=== PATIENT | female | born 1990 | race Caucasian/White ===

== ENCOUNTER 2023-10-18 18:22 | Emergency (ER) | payer OTHER ==
[~2023-10-18 18:22] MED LIST: GASTROGRAFIN 30 ML BOT ONE
[2023-10-18] MEDS ORDERED: fentaNYL 50 mcg/mL 1 mL Vial ONE (20:57)
[2023-10-18 21:07] LABS: Hematocrit 28.3 % (36.0-47.0); Hemoglobin 9.2 g/dL (12.0-16.0); Manual Diff?? YES; Mean Corpuscular HGB CONC 32.5 g/dL (32.0-36.0); Mean Corpuscular Hemoglobin 27.8 pg (27.0-31.0); Mean Corpuscular Volume 85.5 fl (78.0-98.0); Mean Platelet Volume 9.4 fL (7.4-10.4); Platelet Count 260 10x3/uL (130-400); RBC Distribution Width 19.4 % (11.5-14.5); Red Blood Cell (RBC) Count 3.31 mill/uL (4.20-5.40); White Blood Cell (WBC) Count 5.9 10x3/uL (4.8-10.8)
[2023-10-18 21:08] LABS: Delete Auto Diff?? YES
[2023-10-18 21:33] LABS: Anisocytosis SLIGHT = 6-15 cells HPF (0-5); Band 1 % (5-11); CellaVision Operator ID lab.sh2; Eosinophils 29 % (0-10); Lymphocytes 19 % (21-51); Monocytes 11 % (0-10); Neutrophil 39 % (42-75); Ovalocytes SLIGHT = 2-5 cells HPF (0-1); Platelet Adequacy Comment Platelets Normal; Polychromasia SLIGHT = 2-3 cells HPF (0-2); Smudge Cells 17.2 %; Total Cell Count 99
[2023-10-18 21:35] LABS: ALT (SGPT) 28 U/L (8-55); AST (SGOT) 23 U/L (5-34); Albumin 3.5 g/dL (3.5-5.0); Alkaline Phosphatase 57 U/L (40-110); Anion Gap 12 mmol/L (10-20); BUN (Urea Nitrogen) 10 mg/dL (7.0-18.7); Bilirubin, Total 0.6 mg/dL (0.2-1.2); Calc. Creatinine Clearance 0 mL/min (70-130); Calcium 8.8 mg/dL (7.8-10.44); Carbon Dioxide 22 mmol/L (22-29); Chloride 104 mmol/L (98-107); Estimated GFR 127; Globulin 3.6 g/dL (2.4-3.5); Glucose 86 mg/dL (70-105); Potassium 4.2 mmol/L (3.5-5.1); Protein, Total 7.1 g/dL (6.0-8.3); Sodium 134 mmol/L (136-145)
== END 2023-10-19 04:43 ==
LOC: ERS 18:22
DX: K94.23 Gastrostomy malfunction (principal); J18.9 Pneumonia, unspecified organism; Z43.1 Encounter for attention to gastrostomy
CPT/HCPCS: 36415; 43762; 71045; 74018; 80053; 85025; 87040; 96374; J3010; Q9963

== ENCOUNTER 2023-12-18 10:55 | Inpatient (IN) | payer OTHER ==
[~2023-12-18 10:55] MED LIST changes: -GASTROGRAFIN 30 ML BOT ONE; +Iopamidol-370 76% 500 ML MDV (1 ML CHARGE) ONE
[2023-12-18] MEDS ORDERED: NOREPINEPHRINE 8 MG/250 ML-D5W 250 ML ONE ×2 (10:58→14:38)
[2023-12-18] MEDS ORDERED: Cefepime 2 GM VIAL ONE (11:16)
[2023-12-18] MEDS ORDERED: Vancomycin 1 GM/200 ML (FROZEN) BAG ONE (11:16)
[2023-12-18] MEDS ORDERED: Sodium Chloride 0.9% 100 ML ONE (11:17)
[2023-12-18 11:23] LABS: Hematocrit 28.2 % (36.0-47.0); Hemoglobin 8.4 g/dL (12.0-16.0); Manual Diff?? YES; Mean Corpuscular HGB CONC 29.8 g/dL (32.0-36.0); Mean Corpuscular Hemoglobin 26.6 pg (27.0-31.0); Mean Corpuscular Volume 89.2 fl (78.0-98.0); Mean Platelet Volume 10.3 fL (7.4-10.4); Platelet Count 90 10x3/uL (130-400); Red Blood Cell (RBC) Count 3.16 mill/uL (4.20-5.40); White Blood Cell (WBC) Count 0.5 10x3/uL (4.8-10.8)
[2023-12-18 11:26] LABS: Delete Auto Diff?? YES
[2023-12-18] MEDS ORDERED: Vasopressin 20 UNITS/ML VIAL ONE ×2 (11:29→11:30)
[2023-12-18 11:47] LABS: ALT (SGPT) 56 U/L (8-55); AST (SGOT) 73 U/L (5-34); Albumin 2.3 g/dL (3.5-5.0); Alkaline Phosphatase 56 U/L (40-110); Anion Gap 14 mmol/L (10-20); BUN (Urea Nitrogen) 48 mg/dL (7.0-18.7); Calc. Creatinine Clearance 0 mL/min (70-130); Calcium 7.2 mg/dL (7.8-10.44); Carbon Dioxide 16 mmol/L (22-29); Chloride 116 mmol/L (98-107); Estimated GFR 44; Globulin 2.4 g/dL (2.4-3.5); Glucose 120 mg/dL (70-105); Potassium 3.7 mmol/L (3.5-5.1); Protein, Total 4.7 g/dL (6.0-8.3); Sodium 142 mmol/L (136-145)
[2023-12-18] MEDS ORDERED: Acetaminophen 650 MG Suppository ONE (11:55)
[2023-12-18 12:30] LABS: Bacteria/HPF 3+ HPF (None Seen); Bilirubin Negative (Negative); Blood, Urine 3+ (Negative); CAUTI Indications for Culture Fever or rigors; Clarity Turbid (Clear); Glucose, Urine (Dipstick) Normal (Negative); Ketone, Urine Negative (Negative); Leukocyte 500 Leu/uL (Negative); Nitrite Negative (Negative); Protein, Urine (Dipstick) 10 mg/dL (Neg-Trace); RBC/HPF 0-3 HPF (0-3); Specific Gravity, Urine 1.006 (1.002-1.036); Squamous Epithelial 0-3 HPF (0-3); Urobilinogen Normal mg/dL (Less than 2); WBC/HPF 21-50 HPF (0-3)
[2023-12-18 12:31] LABS: Urine Culture Reflex Yes Yes
[2023-12-18 12:35] LABS: Band 1 % (5-11); Burr Cells MARKED = >16 cells HPF (0-1); CellaVision Operator ID LAB.GE; Eosinophils 2 % (0-10); Large Platelets 7.2 % (0-5); Lymphocytes 82 % (21-51); Monocytes 2 % (0-10); Neutrophil 11 % (42-75); Nucleated RBC (Manual Ct) 7 % (0); Platelet Adequacy Comment Platelets Decreased; Polychromasia SLIGHT = 2-3 cells HPF (0-2); Reactive Lymphocytes 1 % (0-10); Total Cell Count 97
[2023-12-18] MEDS ORDERED: Hydrocortisone Sod Succ/PF 100 mg/2 ml Vial ONE (12:39)
[2023-12-18] MEDS ORDERED: EPINEPHrine 1 MG/ML VIAL ONE (13:13)
[2023-12-18 13:35] LABS: Analyzer IN Cardio ER; Base Excess (BEa) -13.8 mEq/L (-2.0 to +3.0); Calcium, Ionized (arterial) 1.04 mmol/L (1.12-1.30); Hematocrit-ABG 26 % (36.0-47.0); O2 Tension (PaO2), arterial 148.9 mmHg (80.0-100.0); Potassium - ABG Lab 3.54 mmol/L (3.70-5.30)
[2023-12-18] MEDS ORDERED: Ibuprofen 100 MG/5 ML UDCUP ONE (13:35)
[2023-12-18] MEDS ORDERED: Electrolyte Replacement Protocol 1 EACH IVPB PRN (13:40)
[2023-12-18] MEDS ORDERED: Acetaminophen 650 MG Suppository PR PRN (13:40)
[2023-12-18] MEDS ORDERED: Acetaminophen 325 MG (10.15 ML) UDCUP PO PRN (13:40)
[2023-12-18 13:44] LABS: Puncture Site RRA
[2023-12-18 13:46] LABS: SARS-CoV-2 NAA Rapid Test Not Detected (NotDetected)
[2023-12-18] MEDS ORDERED: metroNIDAZOLE 500 MG in Premix 1 BAG IVPB SCH (14:10)
[2023-12-18] MEDS ORDERED: Electrolyte Replacement Protocol FS PRN (14:30)
[2023-12-18] MEDS ORDERED: Sodium Bicarbonate 150 MEQ in Dextrose 5% in Water 1,000 ML IV SCH (15:00)
[2023-12-18] MEDS ORDERED: Vancomycin HCl 500 MG in Sodium Chloride 0.9% 100 ML IVPB SCH (15:00)
[2023-12-18 15:33] LABS: Hemoglobin 9.3 g/dL (12.0-16.0); Manual Diff?? YES; Mean Corpuscular Hemoglobin 27.1 pg (27.0-31.0); Mean Corpuscular Volume 90.4 fl (78.0-98.0); Mean Platelet Volume 10.9 fL (7.4-10.4); Platelet Count 121 10x3/uL (130-400); RBC Distribution Width 18.3 % (11.5-14.5); Red Blood Cell (RBC) Count 3.43 mill/uL (4.20-5.40)
[2023-12-18 15:34] LABS: White Blood Cell (WBC) Count 14.1 10x3/uL (4.8-10.8)
[2023-12-18 15:37] LABS: Delete Auto Diff?? YES
[2023-12-18 15:55] LABS: Lactic Acid 11.2 mmol/L (0.5-2.2)
[2023-12-18 16:00] LABS: MONO NEGATIVE CONTROL ZONE White (Negative) (White); MONO POSITIVE CONTROL Pink Line (Positive) (PINK/RED); Mononucleosis NEGATIVE (NEGATIVE)
[2023-12-18 16:01] LABS: Anisocytosis SLIGHT = 6-15 cells HPF (0-5); Band 22 % (5-11); Burr Cells MODERATE= 6-15 cells HPF (0-1); CellaVision Operator ID LAB.MJL; Dohle Bodies SLIGHT; Elliptocytes SLIGHT = 2-5 cells HPF (0-1); Large Platelets 2.8 % (0-5); Lymphocytes 9 % (21-51); Metamyelocyte 13 % (0-0); Myelocyte 4 % (0-0); Neutrophil 51 % (42-75); Ovalocytes SLIGHT = 2-5 cells HPF (0-1); Platelet Adequacy Comment Platelets Decreased; Poikilocytosis MODERATE=16-30 cells HPF (0-5); Polychromasia SLIGHT = 2-3 cells HPF (0-2); Total Cell Count 108; Toxic Granulation MODERATE; Vacuoles MODERATE
[2023-12-18] MEDS: Clindamycin/D5W 900 MG in Premix 1 BAG IVPB SCH (16:34)
[2023-12-18] MEDS: Lactated Ringer's 1,000 ML IV SCH (16:34)
[2023-12-18] MEDS ORDERED: Phenylephrine 40 MG in Sodium Chloride 0.9% 250 ML 250 ML IVPB PRN (17:27)
[2023-12-18] MEDS ORDERED: Lactated Ringer's 1,000 ML IV SCH (17:30)
[2023-12-18] MEDS ORDERED: Midodrine HCl 5 MG TAB PO SCH (17:30)
[2023-12-18] MEDS ORDERED: Albumin 25% 25 GM (100 mL) BOT IVPB SCH (17:30)
[2023-12-18] MEDS: Hydrocortisone Sod Succ/PF 100 mg/2 ml Vial IVP SCH (18:03)
[2023-12-18] MEDS: Phenylephrine 40 MG, Admixture Fee 1 EACH in Sodium Chloride 0.9% 250 ML 250 ML IVPB PRN (18:26)
[2023-12-18] MEDS: NOREPINEPHRINE 8 MG/250 ML-D5W 250 ML IVPB SCH ×2 (18:45→21:52)
[2023-12-18 19:22] LABS: HBCM Index 0.08 S/CO (0-0.79); HBSAg Index 0.21 S/CO (0-0.99); Hep A IgM AB Non-Reactive S/CO (NonReactive); Hep A IgM S/CO 0.13 S/CO (0-0.79); Hep B Surf Ag Non-Reactive S/CO (NonReactive); Hepatitis B Core IgM Abs Non-Reactive S/CO (NonReactive)
[2023-12-18 19:26] LABS: Hep C IgG Ab Reflex HepC Qnt S/CO (NonReactive)
[2023-12-18] MEDS ORDERED: Ibuprofen 600 MG TAB PO PRN (20:12)
[2023-12-18] MEDS ORDERED: Ibuprofen 100 MG/5 ML UDCUP PO PRN (20:34)
[2023-12-18] MEDS ORDERED: Vancomycin (BATCH) 1.5 GM in Premix 1 BAG IVPB SCH (21:00)
[2023-12-18] MEDS: Midodrine HCl 5 MG TAB PO SCH (21:08)
[2023-12-18] MEDS: Famotidine/PF 20 mg/2ml Vial SLOW IVP SCH (21:08)
[2023-12-18] MEDS: Heparin 5,000 UNITS/ML VIAL SC SCH (21:09)
[2023-12-18] MEDS ORDERED: Glucagon 1 MG/ML KIT IM PRN (21:25)
[2023-12-18] MEDS ORDERED: Dextrose 50% Abboject 50 ML SYRINGE SLOW IVP PRN (21:25)
[2023-12-18] MEDS ORDERED: Dextrose 5% in Water 1,000 ML IV PRN (21:25)
[2023-12-18] MEDS: HumaLOG 300 UNITS/3 ML VIAL SC PRN (21:36)
[2023-12-18 22:06] LABS: Critical Call Chem-Lactate NUR.SJK1 @2205; Lactic Acid 9.8 mmol/L (0.5-2.2)
[2023-12-19] MEDS ORDERED: traZODone HCl 50 MG TAB PO SCH (00:15)
[2023-12-19] MEDS: Hydrocortisone Sod Succ/PF 100 mg/2 ml Vial IVP SCH ×5 (00:17→23:37)
[2023-12-19] MEDS: Cefepime 1 GM in Sodium Chloride 0.9% 100 ML IVPB SCH ×3 (00:17→23:57)
[2023-12-19] MEDS: Clindamycin/D5W 900 MG in Premix 1 BAG IVPB SCH ×4 (00:18→23:57)
[2023-12-19] MEDS: Albumin 25% 25 GM (100 mL) BOT IVPB SCH ×3 (00:18→11:18)
[2023-12-19] MEDS: Phenylephrine 40 MG, Admixture Fee 1 EACH in Sodium Chloride 0.9% 250 ML 250 ML IVPB PRN (00:30)
[2023-12-19] MEDS: Vasopressin 20 UNITS in Sodium Chloride 0.9% 50 ML IV SCH ×2 (00:30→16:18)
[2023-12-19] MEDS: Acetaminophen 650 MG/20.3 ML UDCUP PO PRN ×3 (00:30→23:58)
[2023-12-19] MEDS: Lactated Ringer's 1,000 ML IV SCH ×3 (00:31→17:39)
[2023-12-19 01:27] LABS: Lactic Acid 8.5 mmol/L (0.5-2.2)
[2023-12-19] MEDS: NOREPINEPHRINE 8 MG/250 ML-D5W 250 ML IVPB SCH ×4 (01:34→18:10)
[2023-12-19] MEDS ORDERED: Sodium Bicarbonate 150 MEQ in Dextrose 5% in Water 1,000 ML IV SCH (03:30)
[2023-12-19 04:28] LABS: Hematocrit 29.4 % (36.0-47.0); Hemoglobin 9.2 g/dL (12.0-16.0); Manual Diff?? YES; Mean Corpuscular HGB CONC 31.3 g/dL (32.0-36.0); Mean Corpuscular Hemoglobin 26.5 pg (27.0-31.0); RBC Distribution Width 18.4 % (11.5-14.5); Red Blood Cell (RBC) Count 3.47 mill/uL (4.20-5.40); White Blood Cell (WBC) Count 22.6 10x3/uL (4.8-10.8)
[2023-12-19 04:29] LABS: Platelet Count 88 10x3/uL (130-400)
[2023-12-19 04:30] LABS: Delete Auto Diff?? YES; Mean Corpuscular Volume 84.7 fl (78.0-98.0)
[2023-12-19 05:07] LABS: Lactic Acid 5.9 mmol/L (0.5-2.2)
[2023-12-19 05:37] LABS: ALT (SGPT) 50 U/L (8-55); AST (SGOT) 91 U/L (5-34); Albumin 3.1 g/dL (3.5-5.0); Alkaline Phosphatase 48 U/L (40-110); Anion Gap 16 mmol/L (10-20); BUN (Urea Nitrogen) 28 mg/dL (7.0-18.7); Bilirubin, Total 2.1 mg/dL (0.2-1.2); Calc. Creatinine Clearance 101 mL/min (70-130); Calcium 6.7 mg/dL (7.8-10.44); Carbon Dioxide 14 mmol/L (22-29); Chloride 112 mmol/L (98-107); Estimated GFR 85; Globulin 2.2 g/dL (2.4-3.5); Glucose 295 mg/dL (70-105); Potassium 3.9 mmol/L (3.5-5.1); Protein, Total 5.3 g/dL (6.0-8.3); Sodium 138 mmol/L (136-145)
[2023-12-19 05:43] LABS: Band 31 % (5-11); CellaVision Operator ID LAB.CLH1; Hypochromia SLIGHT = 6-15 cells HPF (0-5); Lymphocytes 7 % (21-51); Monocytes 13 % (0-10); Neutrophil 50 % (42-75); Nucleated RBC (Manual Ct) 2 % (0); Platelet Adequacy Comment Platelets Decreased; Polychromasia SLIGHT = 2-3 cells HPF (0-2); Total Cell Count 103
[2023-12-19] MEDS ORDERED: Calcium Chloride 13.6 MEQ in Sodium Chloride 0.9% 100 ML IVPB SCH (06:15)
[2023-12-19] MEDS ORDERED: NOREPINEPHRINE 8 MG/250 ML-D5W 250 ML ONE ×2 (08:40→13:13)
[2023-12-19] MEDS: Heparin 5,000 UNITS/ML VIAL SC SCH ×2 (08:46→22:05)
[2023-12-19] MEDS: Famotidine/PF 20 mg/2ml Vial SLOW IVP SCH ×2 (08:46→22:03)
[2023-12-19] MEDS: Midodrine HCl 5 MG TAB PO SCH ×3 (08:46→22:05)
[2023-12-19] MEDS: Baclofen 10 MG TAB PER TUBE SCH ×3 (08:46→22:04)
[2023-12-19] MEDS ORDERED: Midodrine HCl 5 MG TAB PER TUBE SCH (09:00)
[2023-12-19] MEDS: HumaLOG 300 UNITS/3 ML VIAL SC PRN ×3 (11:00→23:54)
[2023-12-19] MEDS: HYDROcodone/Acetaminophen 5/325 mg Tablet PO PRN ×3 (11:17→23:58)
[2023-12-19] MEDS ORDERED: Vancomycin (BATCH) 1.25 GM in Premix 1 BAG IVPB SCH (12:00)
[2023-12-19 14:03] LABS: pH, Arterial 7.187 (7.35-7.45)
[2023-12-19 14:04] LABS: Actual Bicarbonate (HCO3a) 13.3 mEq/L (22-28)
[2023-12-19 14:39] LABS: Hemoglobin A1c 5.8 % (4.0-6.0)
[2023-12-19 14:45] LABS: GC by PCR, Vaginal Swab Not Detected (NotDetected)
[2023-12-19] MEDS ORDERED: diphenhydrAMINE 50 MG/ML VIAL IVP SCH (15:02)
[2023-12-19] MEDS: Vancomycin HCl 750 MG in Sodium Chloride 0.9% 250 ML 250 ML IVPB SCH ×2 (15:36→23:38)
[2023-12-19] MEDS ORDERED: Lactated Ringer's 500 ML IV SCH (16:45)
[2023-12-19] MEDS: Gabapentin 300 MG CAP PER TUBE SCH (22:04)
[2023-12-19] MEDS: traZODone HCl 50 MG TAB PER TUBE SCH (23:56)
[2023-12-20] MEDS ORDERED: Sodium Bicarb 50 mEq/50 ML VIAL IVP SCH (02:15)
[2023-12-20] MEDS ORDERED: Lactated Ringer's 500 ML IV SCH (02:15)
[2023-12-20] MEDS: Lactated Ringer's 1,000 ML IV SCH ×2 (04:00→12:29)
[2023-12-20] MEDS: Vasopressin 20 UNITS in Sodium Chloride 0.9% 50 ML IV SCH ×3 (04:17→18:23)
[2023-12-20] MEDS: HumaLOG 300 UNITS/3 ML VIAL SC PRN (04:55)
[2023-12-20 05:05] LABS: Hemoglobin 8.2 g/dL (12.0-16.0); Manual Diff?? YES; Mean Corpuscular HGB CONC 31.5 g/dL (32.0-36.0); Mean Corpuscular Hemoglobin 26.9 pg (27.0-31.0); Mean Corpuscular Volume 85.2 fl (78.0-98.0); RBC Distribution Width 18.3 % (11.5-14.5); Red Blood Cell (RBC) Count 3.05 mill/uL (4.20-5.40); White Blood Cell (WBC) Count 19.5 10x3/uL (4.8-10.8)
[2023-12-20 05:06] LABS: Platelet Count 42 10x3/uL (130-400)
[2023-12-20 05:07] LABS: Delete Auto Diff?? YES
[2023-12-20 05:30] LABS: ALT (SGPT) 41 U/L (8-55); AST (SGOT) 77 U/L (5-34); Alkaline Phosphatase 53 U/L (40-110); Anion Gap 8 mmol/L (10-20); BUN (Urea Nitrogen) 26 mg/dL (7.0-18.7); Bilirubin, Total 1.3 mg/dL (0.2-1.2); Calc. Creatinine Clearance 138 mL/min (70-130); Calcium 7.4 mg/dL (7.8-10.44); Carbon Dioxide 26 mmol/L (22-29); Chloride 107 mmol/L (98-107); Estimated GFR 118; Globulin 1.9 g/dL (2.4-3.5); Glucose 218 mg/dL (70-105); Protein, Total 4.9 g/dL (6.0-8.3); Sodium 137 mmol/L (136-145)
[2023-12-20 05:46] LABS: Anisocytosis SLIGHT = 6-15 cells HPF (0-5); Band 11 % (5-11); CellaVision Operator ID lab.sh2; Dohle Bodies SLIGHT; Hypochromia SLIGHT = 6-15 cells HPF (0-5); Large Platelets 1.9 % (0-5); Lymphocytes 7 % (21-51); Monocytes 2 % (0-10); Neutrophil 81 % (42-75); Ovalocytes MODERATE= 6-15 cells HPF (0-1); Platelet Adequacy Comment Significant decrease; Polychromasia SLIGHT = 2-3 cells HPF (0-2); Smudge Cells 9.6 %; Total Cell Count 104
[2023-12-20] MEDS: Hydrocortisone Sod Succ/PF 100 mg/2 ml Vial IVP SCH ×3 (07:07→16:46)
[2023-12-20] MEDS: Vancomycin HCl 750 MG in Sodium Chloride 0.9% 250 ML 250 ML IVPB SCH (07:46)
[2023-12-20 07:49] LABS: Vancomycin, Trough 10.9 ug/mL
[2023-12-20] MEDS: Clindamycin/D5W 900 MG in Premix 1 BAG IVPB SCH ×2 (07:56→16:46)
[2023-12-20] MEDS ORDERED: Magnesium 2 GM/50 ML(in water) 2 GM in Premix 1 BAG IVPB SCH (08:00)
[2023-12-20] MEDS ORDERED: Potassium Phosphate 15 MMOL in Sodium Chloride 0.9% 100 ML IVPB SCH (08:00)
[2023-12-20] MEDS: Gabapentin 300 MG CAP PER TUBE SCH ×3 (08:50→20:37)
[2023-12-20] MEDS: Famotidine/PF 20 mg/2ml Vial SLOW IVP SCH ×2 (08:50→20:37)
[2023-12-20] MEDS: NOREPINEPHRINE 8 MG/250 ML-D5W 250 ML IVPB SCH (08:50)
[2023-12-20] MEDS: Baclofen 10 MG TAB PER TUBE SCH ×3 (08:51→20:38)
[2023-12-20] MEDS: Midodrine HCl 5 MG TAB PO SCH ×3 (08:51→20:38)
[2023-12-20] MEDS: Heparin 5,000 UNITS/ML VIAL SC SCH ×2 (08:52→20:38)
[2023-12-20] MEDS: HYDROcodone/Acetaminophen 5/325 mg Tablet PO PRN ×2 (10:44→20:38)
[2023-12-20] MEDS: Cefepime 1 GM in Sodium Chloride 0.9% 100 ML IVPB SCH (12:26)
[2023-12-20] MEDS: Nitroglycerin 2% Ointment 1 INCH/1 GM Packet TOP SCH ×2 (12:26→18:27)
[2023-12-20 12:35] LABS: BHCG - Serum Negative (NEGATIVE); Pregs Control Background? CLEAR/WHITE (CLR/WHITE); Pregs Control Bar Appear? YES (CONTROL BAR)
[2023-12-20] MEDS ORDERED: Albumin 25% 25 GM (100 mL) BOT IVPB SCH (16:45)
[2023-12-20] MEDS: Vancomycin 1 GM in Premix 1 BAG IVPB SCH (16:46)
[2023-12-20] MEDS ORDERED: Nitroglycerin 2% Ointment 1 INCH/1 GM Packet TOP SCH (18:15)
[2023-12-20] MEDS ORDERED: Cefepime 2 GM in Sodium Chloride 0.9% 100 ML IVPB SCH ×2 (20:00→23:59)
[2023-12-20] MEDS ORDERED: Meropenem 2 GM in Sodium Chloride 0.9% 100 ML IVPB SCH (20:30)
[2023-12-20] MEDS: traZODone HCl 50 MG TAB PER TUBE SCH (20:38)
[2023-12-20] MEDS ORDERED: Meropenem 1 GM in Sodium Chloride 0.9% 100 ML IVPB SCH (21:00)
[2023-12-20] MEDS: AMPICILLIN IVPB SCH (22:52)
[2023-12-20] MEDS: SODIUM CHLORIDE 0.9% IVPB SCH (22:52)
[2023-12-20] MEDS: SULBACTAM IVPB SCH (22:52)
[2023-12-21] MEDS: Hydrocortisone Sod Succ/PF 100 mg/2 ml Vial IVP SCH ×5 (01:11→23:59)
[2023-12-21] MEDS: Vancomycin 1 GM in Premix 1 BAG IVPB SCH ×2 (01:12→09:03)
[2023-12-21 04:20] LABS: Hematocrit 24.3 % (36.0-47.0); Hemoglobin 7.7 g/dL (12.0-16.0); Manual Diff?? YES; Mean Corpuscular HGB CONC 31.7 g/dL (32.0-36.0); Mean Corpuscular Hemoglobin 26.4 pg (27.0-31.0); Mean Corpuscular Volume 83.2 fl (78.0-98.0); RBC Distribution Width 18.1 % (11.5-14.5); Red Blood Cell (RBC) Count 2.92 mill/uL (4.20-5.40); White Blood Cell (WBC) Count 19.8 10x3/uL (4.8-10.8)
[2023-12-21 04:25] LABS: Delete Auto Diff?? YES; Platelet Count 39 10x3/uL (130-400)
[2023-12-21 04:43] LABS: Anion Gap 9 mmol/L (10-20); BUN (Urea Nitrogen) 37 mg/dL (7.0-18.7); Calc. Creatinine Clearance 163 mL/min (70-130); Calcium 7.4 mg/dL (7.8-10.44); Carbon Dioxide 25 mmol/L (22-29); Chloride 109 mmol/L (98-107); Estimated GFR 122; Glucose 211 mg/dL (70-105); Potassium 4.3 mmol/L (3.5-5.1); Sodium 139 mmol/L (136-145)
[2023-12-21 05:09] LABS: Band 4 % (5-11); CellaVision Operator ID lab.abc; Eosinophils 1 % (0-10); Hypochromia SLIGHT = 6-15 cells HPF (0-5); Lymphocytes 8 % (21-51); Monocytes 5 % (0-10); Neutrophil 82 % (42-75); Nucleated RBC (Manual Ct) 1 % (0); Platelet Adequacy Comment Platelets Decreased; Total Cell Count 100
[2023-12-21] MEDS: HYDROcodone/Acetaminophen 5/325 mg Tablet PO PRN ×3 (05:23→20:39)
[2023-12-21] MEDS: Meropenem 1 GM in Sodium Chloride 0.9% 100 ML IVPB SCH ×3 (05:24→21:58)
[2023-12-21] MEDS: HumaLOG 300 UNITS/3 ML VIAL SC PRN ×2 (05:26→11:00)
[2023-12-21] MEDS: SODIUM CHLORIDE 0.9% IVPB SCH ×4 (08:00→22:20)
[2023-12-21] MEDS: AMPICILLIN IVPB SCH ×3 (08:00→22:20)
[2023-12-21] MEDS: SULBACTAM IVPB SCH ×3 (08:00→22:20)
[2023-12-21] MEDS: Lactated Ringer's 1,000 ML IV SCH (09:03)
[2023-12-21] MEDS: Baclofen 10 MG TAB PER TUBE SCH ×3 (09:03→20:39)
[2023-12-21] MEDS: Midodrine HCl 5 MG TAB PO SCH ×3 (09:03→20:38)
[2023-12-21] MEDS: Gabapentin 300 MG CAP PER TUBE SCH ×3 (09:03→20:38)
[2023-12-21] MEDS: Famotidine/PF 20 mg/2ml Vial SLOW IVP SCH ×2 (09:04→20:38)
[2023-12-21] MEDS: Heparin 5,000 UNITS/ML VIAL SC SCH (09:05)
[2023-12-21] MEDS: Nitroglycerin 2% Ointment 1 INCH/1 GM Packet TOP SCH ×2 (11:50→18:07)
[2023-12-21 14:14] LABS: Parvovirus B19 IgG ABS 5.7 index (0.0-0.8); Parvovirus B19 IgM ABS 0.1 index (0.0-0.8)
[2023-12-21] MEDS: AMIKACIN SULFATE IVPB SCH (15:45)
[2023-12-21 18:37] LABS: HCV RNA, log10 5.097 (.); Hep C PCR-Quant 125000 IU/mL (.)
[2023-12-21] MEDS: traZODone HCl 50 MG TAB PER TUBE SCH (20:39)
[2023-12-21] MEDS ORDERED: HYDROcodone/Acetaminophen 5/325 mg Tablet PO SCH (23:45)
[2023-12-21] MEDS ORDERED: Ketorolac Tromethamine 30 MG (1 mL) VIAL IVP SCH (23:45)
[2023-12-22] MEDS: fentaNYL 50 mcg/mL 1 mL Vial SLOW IVP PRN ×5 (03:02→20:19)
[2023-12-22 04:08] LABS: Hematocrit 22.5 % (36.0-47.0); Hemoglobin 7.1 g/dL (12.0-16.0); Manual Diff?? YES; Mean Corpuscular HGB CONC 31.6 g/dL (32.0-36.0); Mean Corpuscular Hemoglobin 26.2 pg (27.0-31.0); Red Blood Cell (RBC) Count 2.71 mill/uL (4.20-5.40); White Blood Cell (WBC) Count 9.8 10x3/uL (4.8-10.8)
[2023-12-22 04:27] LABS: Anion Gap 7 mmol/L (10-20); BUN (Urea Nitrogen) 27 mg/dL (7.0-18.7); Calc. Creatinine Clearance 188 mL/min (70-130); Calcium 7.7 mg/dL (7.8-10.44); Carbon Dioxide 28 mmol/L (22-29); Chloride 113 mmol/L (98-107); Estimated GFR 126; Glucose 137 mg/dL (70-105); Potassium 3.7 mmol/L (3.5-5.1); Sodium 144 mmol/L (136-145)
[2023-12-22 05:00] LABS: Delete Auto Diff?? YES; Platelet Count 34 10x3/uL (130-400)
[2023-12-22 06:21] LABS: Anisocytosis SLIGHT = 6-15 cells HPF (0-5); Band 5 % (5-11); CellaVision Operator ID LAB.JMM; Hypochromia MODERATE=16-30 cells HPF (0-5); Lymphocytes 6 % (21-51); Macrocytosis SLIGHT = 6-15 cells HPF (0-5); Neutrophil 88 % (42-75); Platelet Adequacy Comment Significant decrease; Polychromasia SLIGHT = 2-3 cells HPF (0-2); Reactive Lymphocytes 1 % (0-10); Total Cell Count 100
[2023-12-22] MEDS: Meropenem 1 GM in Sodium Chloride 0.9% 100 ML IVPB SCH ×3 (06:34→21:24)
[2023-12-22] MEDS: Hydrocortisone Sod Succ/PF 100 mg/2 ml Vial IVP SCH ×4 (06:34→23:48)
[2023-12-22] MEDS: Lactated Ringer's 1,000 ML IV SCH (06:41)
[2023-12-22] MEDS: Famotidine/PF 20 mg/2ml Vial SLOW IVP SCH ×2 (08:08→20:19)
[2023-12-22] MEDS: Baclofen 10 MG TAB PER TUBE SCH ×3 (08:08→20:18)
[2023-12-22] MEDS: Midodrine HCl 5 MG TAB PO SCH ×3 (08:08→20:18)
[2023-12-22] MEDS: Gabapentin 300 MG CAP PER TUBE SCH ×3 (08:08→20:17)
[2023-12-22] MEDS: SODIUM CHLORIDE 0.9% IVPB SCH ×4 (08:48→21:24)
[2023-12-22] MEDS: SULBACTAM IVPB SCH ×3 (08:48→21:24)
[2023-12-22] MEDS: AMPICILLIN IVPB SCH ×3 (08:48→21:24)
[2023-12-22 13:20] VITALS: BP 90/58
[2023-12-22 13:37] LABS: Reference Lab Name LABCORP
[2023-12-22] MEDS: AMIKACIN SULFATE IVPB SCH (13:37)
[2023-12-22] MEDS: Nitroglycerin 2% Ointment 1 INCH/1 GM Packet TOP SCH ×2 (13:43→17:38)
[2023-12-22] MEDS: HYDROcodone/Acetaminophen 5/325 mg Tablet PO PRN ×2 (16:18→23:47)
[2023-12-22] MEDS: traZODone HCl 50 MG TAB PER TUBE SCH (20:18)
[2023-12-23] MEDS: Lactated Ringer's 1,000 ML IV SCH ×2 (00:45→18:21)
[2023-12-23] MEDS: fentaNYL 50 mcg/mL 1 mL Vial SLOW IVP PRN ×4 (01:41→17:07)
[2023-12-23] MEDS: Hydrocortisone Sod Succ/PF 100 mg/2 ml Vial IVP SCH ×3 (05:25→17:08)
[2023-12-23] MEDS: Meropenem 1 GM in Sodium Chloride 0.9% 100 ML IVPB SCH ×3 (05:26→22:59)
[2023-12-23] MEDS: SODIUM CHLORIDE 0.9% IVPB SCH ×4 (05:26→22:59)
[2023-12-23] MEDS: AMPICILLIN IVPB SCH ×3 (05:26→22:59)
[2023-12-23] MEDS: SULBACTAM IVPB SCH ×3 (05:26→22:59)
[2023-12-23 06:13] LABS: Anion Gap 11 mmol/L (10-20); BUN (Urea Nitrogen) 24 mg/dL (7.0-18.7); Calc. Creatinine Clearance 182 mL/min (70-130); Calcium 7.6 mg/dL (7.8-10.44); Carbon Dioxide 27 mmol/L (22-29); Chloride 115 mmol/L (98-107); Estimated GFR 125; Glucose 148 mg/dL (70-105); Potassium 3.4 mmol/L (3.5-5.1); Sodium 150 mmol/L (136-145)
[2023-12-23 06:55] LABS: Hematocrit 26.8 % (36.0-47.0); Hemoglobin 8.6 g/dL (12.0-16.0); Manual Diff?? YES; Mean Corpuscular HGB CONC 32.1 g/dL (32.0-36.0); Mean Corpuscular Hemoglobin 26.6 pg (27.0-31.0); RBC Distribution Width 17.9 % (11.5-14.5); Red Blood Cell (RBC) Count 3.23 mill/uL (4.20-5.40); White Blood Cell (WBC) Count 7.1 10x3/uL (4.8-10.8)
[2023-12-23 06:58] LABS: Delete Auto Diff?? YES; Platelet Count 41 10x3/uL (130-400)
[2023-12-23 07:18] LABS: Band 4 % (5-11); CellaVision Operator ID LAB.CMB; Hypochromia SLIGHT = 6-15 cells HPF (0-5); Large Platelets 4.8 % (0-5); Lymphocytes 7 % (21-51); Monocytes 8 % (0-10); Neutrophil 81 % (42-75); Ovalocytes SLIGHT = 2-5 cells HPF (0-1); Plasma Cells 1 % (0-0); Platelet Adequacy Comment Significant decrease; Polychromasia MODERATE = 3-4 cells HPF (0-2); Target Cells SLIGHT = 2-5 cells HPF (0-1); Total Cell Count 105
[2023-12-23] MEDS ORDERED: Potassium Bicarbonate/Cit Ac 20 MEQ TAB PO SCH (08:00)
[2023-12-23] MEDS: Baclofen 10 MG TAB PER TUBE SCH ×3 (08:19→20:50)
[2023-12-23] MEDS: Midodrine HCl 5 MG TAB PO SCH ×3 (08:19→20:50)
[2023-12-23] MEDS: HYDROcodone/Acetaminophen 5/325 mg Tablet PO PRN ×3 (08:20→20:51)
[2023-12-23] MEDS: Gabapentin 300 MG CAP PER TUBE SCH ×3 (08:20→20:50)
[2023-12-23] MEDS: Famotidine/PF 20 mg/2ml Vial SLOW IVP SCH ×2 (08:21→20:49)
[2023-12-23] MEDS: Nitroglycerin 2% Ointment 1 INCH/1 GM Packet TOP SCH ×2 (12:48→19:18)
[2023-12-23] MEDS ORDERED: Furosemide 40 MG (4 mL) VIAL SLOW IVP SCH (14:15)
[2023-12-23 15:14] LABS: Potassium 3.7 mmol/L (3.5-5.1)
[2023-12-23 17:13] LABS: CMV DNA-PCR Test Negative (Negative)
[2023-12-23] MEDS: AMIKACIN SULFATE IVPB SCH (17:53)
[2023-12-23] MEDS: traZODone HCl 50 MG TAB PER TUBE SCH (20:50)
[2023-12-24] MEDS: Hydrocortisone Sod Succ/PF 100 mg/2 ml Vial IVP SCH ×3 (00:05→20:37)
[2023-12-24] MEDS: fentaNYL 50 mcg/mL 1 mL Vial SLOW IVP PRN ×5 (00:05→16:35)
[2023-12-24] MEDS: HYDROcodone/Acetaminophen 5/325 mg Tablet PO PRN ×4 (04:06→22:33)
[2023-12-24] MEDS: Meropenem 1 GM in Sodium Chloride 0.9% 100 ML IVPB SCH ×3 (05:24→20:38)
[2023-12-24 05:30] LABS: #Monocytes 0.7 thou/uL (0.11-0.59); #Neutrophils 6.3 thou/uL (1.40-6.50); %Basophils 0.1 % (0.0-1.0); %Monocytes 9.2 % (0.0-10.0); %Neutrophils 79.3 % (42.0-75.0); Hematocrit 29.4 % (36.0-47.0); Hemoglobin 9.3 g/dL (12.0-16.0); Mean Corpuscular HGB CONC 31.6 g/dL (32.0-36.0); Mean Corpuscular Hemoglobin 26.9 pg (27.0-31.0); RBC Distribution Width 17.9 % (11.5-14.5); Red Blood Cell (RBC) Count 3.46 mill/uL (4.20-5.40); White Blood Cell (WBC) Count 7.9 10x3/uL (4.8-10.8)
[2023-12-24] MEDS: SODIUM CHLORIDE 0.9% IVPB SCH ×4 (05:46→22:33)
[2023-12-24] MEDS: AMPICILLIN IVPB SCH ×3 (05:46→22:33)
[2023-12-24] MEDS: SULBACTAM IVPB SCH ×3 (05:46→22:33)
[2023-12-24 05:54] LABS: Anion Gap 10 mmol/L (10-20); BUN (Urea Nitrogen) 16 mg/dL (7.0-18.7); Calc. Creatinine Clearance 173 mL/min (70-130); Calcium 7.8 mg/dL (7.8-10.44); Carbon Dioxide 29 mmol/L (22-29); Chloride 111 mmol/L (98-107); Estimated GFR 123; Glucose 126 mg/dL (70-105); Potassium 3.1 mmol/L (3.5-5.1); Sodium 147 mmol/L (136-145)
[2023-12-24 06:03] LABS: Platelet Count 89 10x3/uL (130-400)
[2023-12-24] MEDS: Potassium Chloride 20 MEQ in Premix 1 BAG IVPB SCH ×2 (09:03→10:25)
[2023-12-24] MEDS: Gabapentin 300 MG CAP PER TUBE SCH ×3 (09:04→20:38)
[2023-12-24] MEDS: Famotidine/PF 20 mg/2ml Vial SLOW IVP SCH ×2 (09:04→20:38)
[2023-12-24] MEDS: Baclofen 10 MG TAB PER TUBE SCH ×3 (09:05→20:38)
[2023-12-24] MEDS: Midodrine HCl 5 MG TAB PO SCH ×3 (09:05→20:39)
[2023-12-24] MEDS: Lactated Ringer's 1,000 ML IV SCH (11:29)
[2023-12-24] MEDS: Nitroglycerin 2% Ointment 1 INCH/1 GM Packet TOP SCH ×2 (13:02→16:36)
[2023-12-24] MEDS: AMIKACIN SULFATE IVPB SCH (16:36)
[2023-12-24] MEDS: traZODone HCl 50 MG TAB PER TUBE SCH (20:39)
[2023-12-25] MEDS: fentaNYL 50 mcg/mL 1 mL Vial SLOW IVP PRN ×5 (03:36→21:17)
[2023-12-25 04:52] LABS: #Eosinphils 0.1 thou/uL (0.0-0.7); #Monocytes 0.9 thou/uL (0.11-0.59); #Neutrophils 7.6 thou/uL (1.40-6.50); %Basophils 0.1 % (0.0-1.0); %Eosinophils 0.5 % (0.0-10.0); %Lymphocytes 10.8 % (21.0-51.0); %Monocytes 8.9 % (0.0-10.0); %Neutrophils 78.6 % (42.0-75.0); Hematocrit 32.3 % (36.0-47.0); Hemoglobin 10.2 g/dL (12.0-16.0); Mean Corpuscular HGB CONC 31.6 g/dL (32.0-36.0); Mean Corpuscular Hemoglobin 26.8 pg (27.0-31.0); Platelet Count 143 10x3/uL (130-400); RBC Distribution Width 17.6 % (11.5-14.5); White Blood Cell (WBC) Count 9.6 10x3/uL (4.8-10.8)
[2023-12-25] MEDS: SULBACTAM IVPB SCH ×3 (05:37→21:42)
[2023-12-25] MEDS: Meropenem 1 GM in Sodium Chloride 0.9% 100 ML IVPB SCH ×3 (05:37→21:02)
[2023-12-25] MEDS: AMPICILLIN IVPB SCH ×3 (05:37→21:42)
[2023-12-25] MEDS: SODIUM CHLORIDE 0.9% IVPB SCH ×4 (05:37→21:42)
[2023-12-25] MEDS: HYDROcodone/Acetaminophen 5/325 mg Tablet PO PRN ×2 (05:38→17:28)
[2023-12-25] MEDS: Lactated Ringer's 1,000 ML IV SCH (05:46)
[2023-12-25] MEDS: Famotidine/PF 20 mg/2ml Vial SLOW IVP SCH ×2 (11:02→21:02)
[2023-12-25] MEDS: Nitroglycerin 2% Ointment 1 INCH/1 GM Packet TOP SCH ×2 (11:02→17:28)
[2023-12-25] MEDS: Midodrine HCl 5 MG TAB PO SCH ×3 (11:02→21:03)
[2023-12-25] MEDS: Baclofen 10 MG TAB PER TUBE SCH ×3 (11:02→21:02)
[2023-12-25] MEDS: Hydrocortisone Sod Succ/PF 100 mg/2 ml Vial IVP SCH (11:02)
[2023-12-25] MEDS: Gabapentin 300 MG CAP PER TUBE SCH ×3 (11:03→21:17)
[2023-12-25] MEDS ORDERED: Furosemide 20 MG (2 mL) VIAL SLOW IVP SCH (12:45)
[2023-12-25] MEDS: AMIKACIN SULFATE IVPB SCH (16:05)
[2023-12-25] MEDS: traZODone HCl 50 MG TAB PER TUBE SCH (21:03)
[2023-12-26] MEDS: Lactated Ringer's 1,000 ML IV SCH ×3 (01:23→13:51)
[2023-12-26] MEDS: HYDROcodone/Acetaminophen 5/325 mg Tablet PO PRN ×3 (01:23→17:11)
[2023-12-26] MEDS ORDERED: Albumin 25% 25 GM (100 mL) BOT IVPB SCH (02:30)
[2023-12-26] MEDS ORDERED: Lactated Ringer's 500 ML IV SCH ×2 (02:30→04:30)
[2023-12-26 03:18] LABS: #Eosinphils 0.1 thou/uL (0.0-0.7); #Neutrophils 5.5 thou/uL (1.40-6.50); %Eosinophils 1.7 % (0.0-10.0); %Lymphocytes 17.8 % (21.0-51.0); %Monocytes 11.8 % (0.0-10.0); %Neutrophils 67.6 % (42.0-75.0); Hemoglobin 10.8 g/dL (12.0-16.0); Mean Corpuscular HGB CONC 31.8 g/dL (32.0-36.0); Mean Corpuscular Hemoglobin 26.3 pg (27.0-31.0); Mean Corpuscular Volume 82.7 fl (78.0-98.0); Platelet Count 169 10x3/uL (130-400); RBC Distribution Width 17.6 % (11.5-14.5); Red Blood Cell (RBC) Count 4.11 mill/uL (4.20-5.40); White Blood Cell (WBC) Count 8.2 10x3/uL (4.8-10.8)
[2023-12-26 03:33] LABS: Anion Gap 13 mmol/L (10-20); BUN (Urea Nitrogen) 13 mg/dL (7.0-18.7); Calc. Creatinine Clearance 201 mL/min (70-130); Calcium 7.9 mg/dL (7.8-10.44); Carbon Dioxide 27 mmol/L (22-29); Chloride 102 mmol/L (98-107); Estimated GFR 128; Glucose 95 mg/dL (70-105); Sodium 139 mmol/L (136-145)
[2023-12-26] MEDS: Meropenem 1 GM in Sodium Chloride 0.9% 100 ML IVPB SCH ×3 (05:52→21:08)
[2023-12-26] MEDS: SODIUM CHLORIDE 0.9% IVPB SCH ×4 (06:28→21:08)
[2023-12-26] MEDS: AMPICILLIN IVPB SCH ×3 (06:28→21:08)
[2023-12-26] MEDS: SULBACTAM IVPB SCH ×3 (06:28→21:08)
[2023-12-26] MEDS ORDERED: Potassium Bicarbonate/Cit Ac 20 MEQ TAB PER TUBE SCH (08:00)
[2023-12-26] MEDS: Famotidine/PF 20 mg/2ml Vial SLOW IVP SCH ×2 (10:12→20:04)
[2023-12-26] MEDS: Baclofen 10 MG TAB PER TUBE SCH ×3 (10:12→20:04)
[2023-12-26] MEDS: Nitroglycerin 2% Ointment 1 INCH/1 GM Packet TOP SCH ×2 (10:12→18:28)
[2023-12-26] MEDS: Gabapentin 300 MG CAP PER TUBE SCH ×3 (10:12→20:04)
[2023-12-26] MEDS: Midodrine HCl 5 MG TAB PO SCH ×3 (10:12→20:04)
[2023-12-26] MEDS: Hydrocortisone Sod Succ/PF 100 mg/2 ml Vial IVP SCH (10:12)
[2023-12-26] MEDS: fentaNYL 50 mcg/mL 1 mL Vial SLOW IVP PRN ×3 (10:13→21:07)
[2023-12-26] MEDS: AMIKACIN SULFATE IVPB SCH (17:12)
[2023-12-26] MEDS: Enoxaparin 40 MG (0.4 mL) SYRINGE SC SCH (20:03)
[2023-12-26] MEDS: traZODone HCl 50 MG TAB PER TUBE SCH (20:04)
[2023-12-27] MEDS: Lactated Ringer's 1,000 ML IV SCH ×3 (00:16→20:51)
[2023-12-27] MEDS: fentaNYL 50 mcg/mL 1 mL Vial SLOW IVP PRN ×4 (02:23→18:00)
[2023-12-27 05:11] LABS: #Eosinphils 0.1 thou/uL (0.0-0.7); #Monocytes 0.8 thou/uL (0.11-0.59); #Neutrophils 4.5 thou/uL (1.40-6.50); %Basophils 0.1 % (0.0-1.0); %Eosinophils 1.6 % (0.0-10.0); %Lymphocytes 18.6 % (21.0-51.0); %Monocytes 11.7 % (0.0-10.0); Hematocrit 32.9 % (36.0-47.0); Hemoglobin 10.5 g/dL (12.0-16.0); Mean Corpuscular HGB CONC 31.9 g/dL (32.0-36.0); Mean Corpuscular Hemoglobin 26.9 pg (27.0-31.0); Mean Corpuscular Volume 84.4 fl (78.0-98.0); Mean Platelet Volume 12.4 fL (7.4-10.4); Platelet Count 189 10x3/uL (130-400); RBC Distribution Width 17.7 % (11.5-14.5); White Blood Cell (WBC) Count 6.8 10x3/uL (4.8-10.8)
[2023-12-27 05:35] LABS: Anion Gap 9 mmol/L (10-20); BUN (Urea Nitrogen) 17 mg/dL (7.0-18.7); Calc. Creatinine Clearance 85 mL/min (70-130); Calcium 8.2 mg/dL (7.8-10.44); Carbon Dioxide 29 mmol/L (22-29); Chloride 102 mmol/L (98-107); Estimated GFR 128; Glucose 120 mg/dL (70-105); Potassium 3.1 mmol/L (3.5-5.1); Sodium 137 mmol/L (136-145)
[2023-12-27] MEDS: SULBACTAM IVPB SCH ×3 (05:47→21:23)
[2023-12-27] MEDS: Meropenem 1 GM in Sodium Chloride 0.9% 100 ML IVPB SCH ×3 (05:47→21:24)
[2023-12-27] MEDS: SODIUM CHLORIDE 0.9% IVPB SCH ×4 (05:47→21:23)
[2023-12-27] MEDS: AMPICILLIN IVPB SCH ×3 (05:47→21:23)
[2023-12-27] MEDS ORDERED: Potassium Bicarbonate/Cit Ac 20 MEQ TAB PER TUBE SCH ×2 (08:00→13:00)
[2023-12-27] MEDS: Baclofen 10 MG TAB PER TUBE SCH ×3 (09:29→20:41)
[2023-12-27] MEDS: Famotidine/PF 20 mg/2ml Vial SLOW IVP SCH ×2 (09:29→20:40)
[2023-12-27] MEDS: Gabapentin 300 MG CAP PER TUBE SCH ×3 (09:29→20:40)
[2023-12-27] MEDS: Midodrine HCl 5 MG TAB PO SCH ×3 (09:29→20:41)
[2023-12-27] MEDS: Hydrocortisone Sod Succ/PF 100 mg/2 ml Vial IVP SCH (09:29)
[2023-12-27] MEDS: HYDROcodone/Acetaminophen 5/325 mg Tablet PO PRN ×2 (12:41→20:41)
[2023-12-27] MEDS: Nitroglycerin 2% Ointment 1 INCH/1 GM Packet TOP SCH ×2 (12:41→18:00)
[2023-12-27 15:51] LABS: Magnesium 1.4 mg/dL (1.6-2.6)
[2023-12-27] MEDS: AMIKACIN SULFATE IVPB SCH (15:51)
[2023-12-27 17:34] VITALS: BMI 22.6
[2023-12-27] MEDS ORDERED: Magnesium Sulfate In Water 4 GM in Premix 1 BAG IVPB SCH (20:30)
[2023-12-27] MEDS: traZODone HCl 50 MG TAB PER TUBE SCH (20:40)
[2023-12-27] MEDS: Enoxaparin 40 MG (0.4 mL) SYRINGE SC SCH (20:40)
[2023-12-27] MEDS ORDERED: Melatonin 3 MG TAB PO SCH (20:45)
[2023-12-28] MEDS: fentaNYL 50 mcg/mL 1 mL Vial SLOW IVP PRN ×4 (00:18→17:51)
[2023-12-28 04:26] LABS: #Eosinphils 0.1 thou/uL (0.0-0.7); %Lymphocytes 19.6 % (21.0-51.0); %Monocytes 15.9 % (0.0-10.0); %Neutrophils 61.3 % (42.0-75.0); Hematocrit 31.9 % (36.0-47.0); Mean Corpuscular HGB CONC 31.3 g/dL (32.0-36.0); Mean Corpuscular Hemoglobin 26.5 pg (27.0-31.0); Mean Corpuscular Volume 84.6 fl (78.0-98.0); Mean Platelet Volume 11.7 fL (7.4-10.4); Platelet Count 200 10x3/uL (130-400); RBC Distribution Width 17.3 % (11.5-14.5); Red Blood Cell (RBC) Count 3.77 mill/uL (4.20-5.40); White Blood Cell (WBC) Count 6.5 10x3/uL (4.8-10.8)
[2023-12-28 04:46] LABS: Anion Gap 10 mmol/L (10-20); BUN (Urea Nitrogen) 19 mg/dL (7.0-18.7); Calc. Creatinine Clearance 194 mL/min (70-130); Carbon Dioxide 27 mmol/L (22-29); Chloride 103 mmol/L (98-107); Estimated GFR 131; Glucose 98 mg/dL (70-105); Potassium 3.7 mmol/L (3.5-5.1); Sodium 136 mmol/L (136-145)
[2023-12-28] MEDS: AMPICILLIN IVPB SCH (06:21)
[2023-12-28] MEDS: SULBACTAM IVPB SCH (06:21)
[2023-12-28] MEDS: SODIUM CHLORIDE 0.9% IVPB SCH ×2 (06:21→14:02)
[2023-12-28] MEDS: Lactated Ringer's 1,000 ML IV SCH ×2 (06:32→18:06)
[2023-12-28] MEDS: Gabapentin 300 MG CAP PER TUBE SCH ×2 (08:52→14:02)
[2023-12-28] MEDS: HYDROcodone/Acetaminophen 5/325 mg Tablet PO PRN ×2 (08:52→12:54)
[2023-12-28] MEDS: Midodrine HCl 5 MG TAB PO SCH ×2 (08:53→14:02)
[2023-12-28] MEDS: Baclofen 10 MG TAB PER TUBE SCH ×2 (08:53→14:02)
[2023-12-28] MEDS: Famotidine/PF 20 mg/2ml Vial SLOW IVP SCH (08:53)
[2023-12-28] MEDS: Nitroglycerin 2% Ointment 1 INCH/1 GM Packet TOP SCH ×2 (12:51→17:53)
[2023-12-28 13:02] VITALS: TEMP 96.7
[2023-12-28] MEDS ORDERED: SODIUM CHLORIDE IVPB SCH (14:00)
[2023-12-28] MEDS ORDERED: ADMIXTURE FEE IVPB SCH (14:00)
[2023-12-28] MEDS ORDERED: SULBACTAM IVPB SCH (14:00)
[2023-12-28] MEDS ORDERED: AMPICILLIN IVPB SCH (14:00)
[2023-12-28] MEDS: AMIKACIN SULFATE IVPB SCH (14:02)
== END 2023-12-28 19:45 | DRG 314 ==
LOC: ERS 10:55 → ERHOLD 13:34 → CCU 15:41 → IMCU/EMU 12-22 19:17
PROVIDERS: ADMIT Student in an Organized Health Care Education/Training Program; ATTEND Internal Medicine
PROC: 06HY33Z Insertion of Infusion Device into Lower Vein, Percutaneous Approach (ICD-10-PCS; principal; 2023-12-18)
PROC: 03HY32Z Insertion of Monitoring Device into Upper Artery, Percutaneous Approach (ICD-10-PCS; 2023-12-18)
PROC: 4A133B1 Monitoring of Arterial Pressure, Peripheral, Percutaneous Approach (ICD-10-PCS; 2023-12-18)
PROC: 4A133J1 Monitoring of Arterial Pulse, Peripheral, Percutaneous Approach (ICD-10-PCS; 2023-12-18)
PROC: 4A033R1 Measurement of Arterial Saturation, Peripheral, Percutaneous Approach (ICD-10-PCS; 2023-12-18)
PROC: 3E043XZ Introduction of Vasopressor into Central Vein, Percutaneous Approach (ICD-10-PCS; 2023-12-18)
PROC: 3E04329 Introduction of Other Anti-infective into Central Vein, Percutaneous Approach (ICD-10-PCS; 2023-12-18)
PROC: 5A1945Z Respiratory Ventilation, 24-96 Consecutive Hours (ICD-10-PCS; 2023-12-18)
PROC: 30233N1 Transfusion of Nonautologous Red Blood Cells into Peripheral Vein, Percutaneous Approach (ICD-10-PCS; 2023-12-22)
DX: T80.211A Bloodstream infection due to central venous catheter, initial encounter (principal); A41.50 Gram-negative sepsis, unspecified; G82.50 Quadriplegia, unspecified; L89.153 Pressure ulcer of sacral region, stage 3; G93.41 Metabolic encephalopathy; R65.21 Severe sepsis with septic shock; J96.21 Acute and chronic respiratory failure with hypoxia; N39.0 Urinary tract infection, site not specified; N17.9 Acute kidney failure, unspecified; Z88.2 Allergy status to sulfonamides; D64.9 Anemia, unspecified; F41.9 Anxiety disorder, unspecified; Z98.890 Other specified postprocedural states; K81.9 Cholecystitis, unspecified; N05.9 Unspecified nephritic syndrome with unspecified morphologic changes; Z11.52 Encounter for screening for COVID-19
CPT/HCPCS: 36415; 36416; 36430; 36556; 36600; 71045; 74018; 74177; 76705; 78226; 80048; 80053; 80074; 80150; 80202; 81001; 82565; 82805; 83036; 83605; 83735; 83880; 83930; 83935; 84100; 84145; 84443; 84703; 85025; 85060; 86308; 86747; 86850; 86900; 86901; 87040; 87071; 87077; 87086; 87149; 87186; 87480; 87497; 87510; 87522; 87591; 87660; 93005; 94002; 94003; 94640; 96365; 96366; 96367; 96368; 96375; 97139; A9537; J0171; J0278; J0295; J0692; J1200; J1644; J1650; J1720; J1815; J1940; J2185; J2371; J3010; J3370; J3370-JW; J3475; J3480; J3490; J7050; J7070; J7120; P9016; P9047; Q9967; S0028

== ENCOUNTER → 2024-06-06 | Day surgery (SDC) | payer OTHER ==
[~2024-06-06] MED LIST changes: -Iopamidol-370 76% 500 ML MDV (1 ML CHARGE) ONE; +Lidocaine 2% 6 ML (Jelly) SYR ONE; +MD-Gastroview 120 ML BOT ONE; +Sterile Water 10 ML ONE; +Sterile Water 20 ML ONE
[2024-06-06 09:00] LABS: #Basophils 0.03 10x3/uL (0.0-0.2); %Basophils 0.5 % (0.0-1.0); %Eosinophils 1.7 % (0.0-10.0); %Lymphocytes 25.9 % (21.0-51.0); %Monocytes 16.6 % (0.0-10.0); %Neutrophils 55.1 % (42.0-75.0); Hematocrit 33.9 % (36.0-47.0); Hemoglobin 11.3 g/dL (12.0-16.0); Mean Corpuscular HGB CONC 33.3 g/dL (32.0-36.0); Mean Corpuscular Hemoglobin 27.6 pg (27.0-31.0); Mean Corpuscular Volume 82.9 fL (78.0-98.0); Mean Platelet Volume 9.2 fL (7.4-10.4); Platelet Count 220 10x3/uL (130-400); RBC Distribution Width 15.4 % (11.5-14.5); Red Blood Cell (RBC) Count 4.09 mill/uL (4.20-5.40)
[2024-06-06 09:18] LABS: INR-International Normal Ratio 1.2; Prothrombin Time 14.8 sec (12.0-14.7)
[2024-06-06 09:19] LABS: PTT 31.4 sec (22.9-36.1)
[2024-06-06 10:40] VITALS: BP 111/73; TEMP 98.7
== END ==
LOC: CT 09:00
PROVIDERS: ATTEND Urology
PROC: 0T9B30Z Drainage of Bladder with Drainage Device, Percutaneous Approach (ICD-10-PCS; principal; 2024-06-06)
DX: R33.9 Retention of urine, unspecified (principal); N31.9 Neuromuscular dysfunction of bladder, unspecified; Z88.2 Allergy status to sulfonamides
CPT/HCPCS: 36415; 43763; 51102; 77012; 85025; 85610; 85730; C1894; C2627; Q9963

== ENCOUNTER 2024-06-16 13:35 | Emergency (ER) | payer OTHER ==
[2024-06-16 14:14] LABS: Actual Bicarbonate (HCO3v) 22.5 mEq/L (22-28); Analyzer IN Cardio ER; Base Excess -0.6 mEq/L (-2.0 to +3.0); Calcium, Ionized (venous) 1.14 mmol/L (1.16-1.32); Chloride (VBG) 97 mmol/L (98-106); Hematocrit-VBG 33 % (36.0-47.0); Hemoglobin (Hb) 11.1 g/dL (11.7-15.5); Potassium (VBG) 4.17 mmol/L (3.70-5.30); Sodium 131 mmol/L (133-146); pH (venous) 7.465 (7.32-7.43)
[2024-06-16 14:57] LABS: #Basophils 0.04 10x3/uL (0.0-0.2); %Basophils 0.6 % (0.0-1.0); %Eosinophils 5.9 % (0.0-10.0); %Lymphocytes 27.5 % (21.0-51.0); %Monocytes 19.8 % (0.0-10.0); %Neutrophils 46.1 % (42.0-75.0); Hematocrit 32.6 % (36.0-47.0); Hemoglobin 10.8 g/dL (12.0-16.0); Mean Corpuscular HGB CONC 33.1 g/dL (32.0-36.0); Mean Corpuscular Hemoglobin 27.7 pg (27.0-31.0); Mean Corpuscular Volume 83.6 fL (78.0-98.0); Mean Platelet Volume 9.6 fL (7.4-10.4); Platelet Count 262 10x3/uL (130-400)
[2024-06-16 15:13] LABS: ALT (SGPT) 45 U/L (8-55); AST (SGOT) 33 U/L (5-34); Albumin 3.1 g/dL (3.5-5.0); Alkaline Phosphatase 62 U/L (40-110); Anion Gap 11 mmol/L (10-20); BUN (Urea Nitrogen) 13 mg/dL (7.0-18.7); Bilirubin, Total 0.4 mg/dL (0.2-1.2); Calc. Creatinine Clearance 0 mL/min (70-130); Calcium 8.8 mg/dL (7.8-10.44); Carbon Dioxide 25 mmol/L (22-29); Chloride 101 mmol/L (98-107); Estimated GFR 125; Globulin 3.8 g/dL (2.4-3.5); Glucose 63 mg/dL (70-105); Potassium 4.2 mmol/L (3.5-5.1); Protein, Total 6.9 g/dL (6.0-8.3); Sodium 133 mmol/L (136-145)
[2024-06-16] MEDS ORDERED: fentaNYL 50 mcg/mL 1 mL Vial ONE ×2 (15:19→17:35)
[2024-06-16 15:59] LABS: Bacteria/HPF 2+ HPF (None Seen); Bilirubin Negative (Negative); Blood, Urine Trace (Negative); CAUTI Indications for Culture Fever or rigors; Clarity Turbid (Clear); Glucose, Urine (Dipstick) Normal (Negative); Ketone, Urine Negative (Negative); Leukocyte 500 Leu/uL (Negative); Nitrite 1+ (Negative); Protein, Urine (Dipstick) 30 mg/dL (Neg-Trace); Specific Gravity, Urine 1.014 (1.002-1.036); Squamous Epithelial 0-3 HPF (0-3); Triple Phosphate Crystal Rare HPF (None Seen); Urine Culture Reflex Yes Yes; Urobilinogen Normal mg/dL (Less than 2); WBC/HPF Greater than 50 HPF (0-3)
[2024-06-16] MEDS ORDERED: cefTRIAXone (ROCEPHIN) 2 GM VIAL ONE (16:31)
[2024-06-16] MEDS ORDERED: Sodium Chloride 0.9% 100 ML ONE (16:31)
== END 2024-06-16 17:42 ==
LOC: ERS 13:35
DX: N39.0 Urinary tract infection, site not specified (principal); L89.159 Pressure ulcer of sacral region, unspecified stage; D64.9 Anemia, unspecified; K21.9 Gastro-esophageal reflux disease without esophagitis; Z79.899 Other long term (current) drug therapy
CPT/HCPCS: 51702; 71045; 80053; 81001; 82805; 83605; 85025; 87040; 87086; 93005; 96374; 96375; 96376; J0696; J3010; J3490

== ENCOUNTER 2024-08-18 18:19 | Inpatient (IN) | payer OTHER ==
[2024-08-18 21:19] LABS: %Lymphocytes 26.7 % (21.0-51.0); %Monocytes 13.9 % (0.0-10.0); %Neutrophils 34.2 % (42.0-75.0); Hematocrit 41.5 % (36.0-47.0); Hemoglobin 13.4 g/dL (12.0-16.0); Mean Corpuscular HGB CONC 32.3 g/dL (32.0-36.0); Mean Corpuscular Hemoglobin 27.8 pg (27.0-31.0); Mean Corpuscular Volume 86.1 fL (78.0-98.0); Mean Platelet Volume 10.4 fL (7.4-10.4); Platelet Count 271 10x3/uL (130-400); RBC Distribution Width 15.9 % (11.5-14.5); Red Blood Cell (RBC) Count 4.82 mill/uL (4.20-5.40)
[2024-08-18] MEDS ORDERED: fentaNYL 50 mcg/mL 1 mL Vial ONE (21:21)
[2024-08-18] MEDS ORDERED: Sodium Chloride 0.9% 100 ML ONE ×2 (21:22→23:11)
[2024-08-18] MEDS ORDERED: Cefepime 2 GM VIAL ONE (21:22)
[2024-08-18 21:41] LABS: ALT (SGPT) 35 U/L (8-55); AST (SGOT) 34 U/L (5-34); Alkaline Phosphatase 55 U/L (40-110); Anion Gap 10 mmol/L (10-20); BUN (Urea Nitrogen) 17 mg/dL (7.0-18.7); Bilirubin, Total 0.7 mg/dL (0.2-1.2); Calc. Creatinine Clearance 0 mL/min (70-130); Calcium 8.6 mg/dL (7.8-10.44); Carbon Dioxide 25 mmol/L (22-29); Chloride 103 mmol/L (98-107); Estimated GFR 118; Globulin 3.5 g/dL (2.4-3.5); Glucose 96 mg/dL (70-105); Potassium 4.8 mmol/L (3.5-5.1); Protein, Total 6.5 g/dL (6.0-8.3); Sodium 133 mmol/L (136-145)
[2024-08-18 22:40] LABS: Bacteria/HPF None Seen HPF (None Seen); Bilirubin Negative (Negative); Blood, Urine 2+ (Negative); CAUTI Indications for Culture Pelvic or flank pain; Clarity Turbid (Clear); Glucose, Urine (Dipstick) Normal (Negative); Ketone, Urine Negative (Negative); Leukocyte 250 Leu/uL (Negative); Nitrite Negative (Negative); Protein, Urine (Dipstick) 600 mg/dL (Neg-Trace); RBC/HPF Greater than 50 HPF (0-3); Specific Gravity, Urine 1.027 (1.002-1.036); Squamous Epithelial 0-3 HPF (0-3); Urobilinogen Normal mg/dL (Less than 2); WBC/HPF Greater than 50 HPF (0-3); pH, Urine 7.5 (5.0-9.0)
[2024-08-18 22:41] LABS: Urine Culture Reflex Yes Yes
[2024-08-18] MEDS ORDERED: Piperacillin/Tazobactam 4.5 GM VIAL ONE (23:11)
[2024-08-18] MEDS ORDERED: Ketorolac Tromethamine 30 MG (1 mL) VIAL ONE (23:11)
[2024-08-19] MEDS ORDERED: Acetaminophen 650 MG Suppository PR PRN (00:09)
[2024-08-19] MEDS ORDERED: Ondansetron PF 4 MG/2 ML Vial IVP PRN (00:09)
[2024-08-19] MEDS ORDERED: Ondansetron ODT 4 MG TAB PO PRN (00:09)
[2024-08-19] MEDS ORDERED: Morphine 4 MG/ML VIAL SLOW IVP PRN (01:20)
[2024-08-19] MEDS ORDERED: Hydrocodone-Acetamin 15 ML UDCUP ONE ×2 (01:32→06:28)
[2024-08-19] MEDS: Vancomycin (BATCH) 1.75 GM in Premix 1 BAG IVPB SCH (01:34)
[2024-08-19] MEDS: HYDROcodone/Acetaminophen 5/325 mg Tablet PO PRN (01:39)
[2024-08-19] MEDS: Sodium Chloride 0.9% 1,000 ML IV SCH (02:35)
[2024-08-19] MEDS: fentaNYL 50 mcg/mL 1 mL Vial SLOW IVP PRN (04:26)
[2024-08-19] MEDS ORDERED: fentaNYL 50 mcg/mL 1 mL Vial ONE (04:30)
[2024-08-19 04:55] LABS: Anion Gap 7 mmol/L (10-20); BUN (Urea Nitrogen) 13 mg/dL (7.0-18.7); Calc. Creatinine Clearance 152 mL/min (70-130); Calcium 7.5 mg/dL (7.8-10.44); Carbon Dioxide 21 mmol/L (22-29); Chloride 113 mmol/L (98-107); Estimated GFR 124; Glucose 96 mg/dL (70-105); Potassium 4.2 mmol/L (3.5-5.1); Sodium 137 mmol/L (136-145)
[2024-08-19 05:01] LABS: Hematocrit 35.3 % (36.0-47.0); Hemoglobin 11.2 g/dL (12.0-16.0); Mean Corpuscular HGB CONC 31.7 g/dL (32.0-36.0); Mean Corpuscular Hemoglobin 27.5 pg (27.0-31.0); Mean Corpuscular Volume 86.5 fL (78.0-98.0); Mean Platelet Volume 10.1 fL (7.4-10.4); Platelet Count 194 10x3/uL (130-400); RBC Distribution Width 15.9 % (11.5-14.5); Red Blood Cell (RBC) Count 4.08 mill/uL (4.20-5.40)
[2024-08-19 06:34] LABS: Anisocytosis SLIGHT = 6-15 cells HPF (0-5); Eosinophils 19 % (0-10); Lymphocytes 27 % (21-51); Macrocytosis SLIGHT = 6-15 cells HPF (0-5); Monocytes 10 % (0-10); Neutrophil 45 % (42-75); Ovalocytes SLIGHT = 2-5 cells HPF (0-1); Platelet Adequacy Comment Platelets Normal; Polychromasia SLIGHT = 2-3 cells HPF (0-2); Smudge Cells 27.5 %
[2024-08-19 08:17] VITALS: BMI 24.7
[2024-08-19] MEDS: Vancomycin 1 GM in Premix 1 BAG IVPB SCH (08:45)
[2024-08-19] MEDS: Enoxaparin 40 MG (0.4 mL) SYRINGE SC SCH (08:49)
[2024-08-19] MEDS: Cefepime 2 GM in Sodium Chloride 0.9% 100 ML IVPB SCH ×2 (08:49→17:38)
[2024-08-19] MEDS: Morphine 2 MG/ML VIAL SLOW IVP SCH (09:48)
[2024-08-19] MEDS: Oxybutynin 5 MG TAB PO SCH (09:49)
[2024-08-19 11:33] VITALS: BMI 24.7
[2024-08-19] MEDS ORDERED: Vancomycin 1 GM in Premix 1 BAG IVPB SCH (15:00)
[2024-08-19] MEDS: Acetaminophen 325 MG TAB PO PRN (17:39)
[2024-08-19] MEDS ORDERED: Acetaminophen 325 MG TAB PER TUBE PRN (17:40)
[2024-08-19] MEDS ORDERED: Artificial Tear Ophth Sol 15 ML BOT EA EYE PRN (17:42)
[2024-08-19] MEDS ORDERED: GUAIFENESIN SF SOLN 200 MG/10 ML UDCUP PER TUBE PRN (17:59)
[2024-08-19] MEDS: Budesonide 0.5 MG/2 ML NEB INH SCH (19:06)
[2024-08-19] MEDS: Baclofen 10 MG TAB PER TUBE SCH ×2 (19:11→21:06)
[2024-08-19] MEDS: traZODone HCl 50 MG TAB PER TUBE SCH (21:05)
[2024-08-19] MEDS: Gabapentin 300 MG CAP PER TUBE SCH (21:05)
[2024-08-19] MEDS: busPIRone HCl 10 MG TAB PER TUBE SCH (21:07)
[2024-08-19] MEDS: Famotidine 20 MG TAB PER TUBE SCH (21:07)
[2024-08-19] MEDS: Midodrine HCl 5 MG TAB PER TUBE SCH (21:07)
[2024-08-19] MEDS: Magnesium Oxide 400 MG TAB PER TUBE SCH (21:07)
[2024-08-19] MEDS: Oxybutynin 5 MG TAB PER TUBE SCH (21:07)
[2024-08-20] MEDS: Vancomycin (BATCH) 1.25 GM in Premix 1 BAG IVPB SCH (00:28)
[2024-08-20] MEDS: Methocarbamol 500 MG TAB PER TUBE PRN (05:26)
[2024-08-20 06:52] LABS: Hematocrit 31.2 % (36.0-47.0); Mean Corpuscular HGB CONC 32.1 g/dL (32.0-36.0); Mean Corpuscular Hemoglobin 28.2 pg (27.0-31.0); Mean Corpuscular Volume 88.1 fL (78.0-98.0); Mean Platelet Volume 10.5 fL (7.4-10.4); Platelet Count 185 10x3/uL (130-400); RBC Distribution Width 15.9 % (11.5-14.5); Red Blood Cell (RBC) Count 3.54 mill/uL (4.20-5.40)
[2024-08-20 07:51] LABS: Vancomycin, Random 14.8 ug/mL (See Comment)
[2024-08-20 07:52] LABS: Anion Gap 9 mmol/L (10-20); BUN (Urea Nitrogen) 6 mg/dL (7.0-18.7); Calc. Creatinine Clearance 187 mL/min (70-130); Calcium 8.1 mg/dL (7.8-10.44); Carbon Dioxide 23 mmol/L (22-29); Chloride 108 mmol/L (98-107); Estimated GFR 127; Glucose 88 mg/dL (70-105); Magnesium 1.7 mg/dL (1.6-2.6); Potassium 3.7 mmol/L (3.5-5.1); Sodium 136 mmol/L (136-145)
[2024-08-20 08:00] LABS: Band 2 % (5-11); Burr Cells SLIGHT = 2-5 cells HPF (0-1); Elliptocytes SLIGHT = 2-5 cells HPF (0-1); Eosinophils 20 % (0-10); Lymphocytes 24 % (21-51); Macrocytosis SLIGHT = 6-15 cells HPF (0-5); Monocytes 4 % (0-10); Neutrophil 50 % (42-75); Nucleated RBC (Manual Ct) 1 % (0); Platelet Adequacy Comment Platelets Normal
[2024-08-20] MEDS: Magnesium 2 GM/50 ML(in water) 2 GM in Premix 1 BAG IVPB SCH (09:40)
[2024-08-20] MEDS: HYDROcodone/Acetaminophen 5/325 mg Tablet PO PRN (09:43)
[2024-08-20] MEDS: Sodium Chloride 1 GM TAB PER TUBE SCH (09:43)
[2024-08-20] MEDS: Loratadine 10 MG TAB PER TUBE SCH (09:46)
[2024-08-20] MEDS: Senokot 8.6 MG TAB PER TUBE SCH (09:46)
[2024-08-20] MEDS: diphenhydrAMINE 30 GM TUBE TOP PRN (10:28)
[2024-08-20] MEDS: Meloxicam 7.5 MG TAB PER TUBE SCH (10:31)
[2024-08-20] MEDS: Acetaminophen 325 MG TAB PER TUBE PRN (17:08)
[2024-08-20] MEDS: Oxybutynin 5 MG TAB PER TUBE SCH (22:25)
[2024-08-21] MEDS: traMADol HCl 50 MG TAB PO PRN (01:41)
[2024-08-21] MEDS ORDERED: Piperacillin/Tazobactam 3.375 GM in Sodium Chloride 0.9% 100 ML IVPB SCH (18:00)
[2024-08-21] MEDS: Piperacillin/Tazobactam 3.375 GM in Sodium Chloride 0.9% 100 ML IVPB SCH ×2 (18:18→23:31)
[2024-08-21] MEDS: diphenhydrAMINE 12.5 MG/5 ML UDCUP PER TUBE PRN (22:18)
[2024-08-22 04:08] LABS: Vancomycin, Trough 19.5 ug/mL
[2024-08-25 16:09] VITALS: BP 106/70; TEMP 97.4
== END 2024-08-25 16:25 | DRG 539 ==
LOC: ERS 18:19 → ERHOLD 22:50 → MSONC 08-19 07:43 → OBSVTOIN 08-20 08:30
PROVIDERS: ADMIT Student in an Organized Health Care Education/Training Program; ATTEND Internal Medicine
DX: M46.28 Osteomyelitis of vertebra, sacral and sacrococcygeal region (principal); G82.50 Quadriplegia, unspecified; L89.154 Pressure ulcer of sacral region, stage 4; E87.1 Hypo-osmolality and hyponatremia; N13.30 Unspecified hydronephrosis; G89.4 Chronic pain syndrome; K21.9 Gastro-esophageal reflux disease without esophagitis; R33.9 Retention of urine, unspecified; D64.9 Anemia, unspecified; I95.9 Hypotension, unspecified; J44.9 Chronic obstructive pulmonary disease, unspecified; Z98.890 Other specified postprocedural states; Z88.0 Allergy status to penicillin; R13.10 Dysphagia, unspecified; E83.42 Hypomagnesemia
CPT/HCPCS: 36415; 74176; 80048; 80053; 80202; 81001; 82565; 83605; 83735; 85025; 86141; 87040; 87077; 87086; 87149; 87186; 94640; 96365; 96367; 96372; 96374; 96375; 96376; 97139; G0378; J0692; J1650; J1885; J2272; J2543; J3010; J3370; J3370-JW; J3475; J7030; J7626; Q0163

== ENCOUNTER 2024-11-19 00:56 | Inpatient (IN) | payer OTHER ==
[2024-11-19] MEDS ORDERED: Acetaminophen 650 MG Suppository PR PRN (02:26)
[2024-11-19] MEDS ORDERED: Ondansetron ODT 4 MG TAB PO PRN (02:26)
[2024-11-19 02:55] LABS: ALT (SGPT) 51 U/L (8-55); AST (SGOT) 57 U/L (5-34); Albumin 3.1 g/dL (3.5-5.0); Alkaline Phosphatase 75 U/L (40-110); Anion Gap 12 mmol/L (10-20); BUN (Urea Nitrogen) 11 mg/dL (7.0-18.7); Bilirubin, Total 0.4 mg/dL (0.2-1.2); Calc. Creatinine Clearance 0 mL/min (70-130); Calcium 8.4 mg/dL (7.8-10.44); Carbon Dioxide 20 mmol/L (22-29); Chloride 96 mmol/L (98-107); Estimated GFR 124; Globulin 3.3 g/dL (2.4-3.5); Glucose 86 mg/dL (70-105); Magnesium 1.9 mg/dL (1.6-2.6); Potassium 4.4 mmol/L (3.5-5.1); Protein, Total 6.4 g/dL (6.0-8.3); Sodium 124 mmol/L (136-145)
[2024-11-19 03:14] LABS: Band 1 % (5-11); Eosinophils 63 % (0-10); Hypochromia SLIGHT = 6-15 cells HPF (0-5); Lymphocytes 19 % (21-51); Macrocytosis SLIGHT = 6-15 cells HPF (0-5); Metamyelocyte 1 % (0-0); Monocytes 8 % (0-10); Neutrophil 8 % (42-75); Platelet Adequacy Comment Platelets Normal; Polychromasia SLIGHT = 2-3 cells HPF (0-2); Reactive Lymphocytes 1 % (0-10)
[2024-11-19 03:16] LABS: Hematocrit 31.7 % (36.0-47.0); Hemoglobin 10.7 g/dL (12.0-16.0); Mean Corpuscular HGB CONC 33.8 g/dL (32.0-36.0); Mean Corpuscular Hemoglobin 27.6 pg (27.0-31.0); Mean Corpuscular Volume 81.9 fL (78.0-98.0); Platelet Count 212 10x3/uL (130-400); RBC Distribution Width 16.5 % (11.5-14.5); Red Blood Cell (RBC) Count 3.87 mill/uL (4.20-5.40)
[2024-11-19] MEDS: Dextrose 5 % And 0.9 % NaCl 1,000 ML IV SCH (04:25)
[2024-11-19] MEDS: Ketorolac Tromethamine 30 MG (1 mL) VIAL IVP SCH (04:25)
[2024-11-19 04:38] VITALS: BMI 23.5
[2024-11-19] MEDS: Magnesium 2 GM/50 ML(in water) 2 GM in Premix 1 BAG IVPB SCH (06:25)
[2024-11-19] MEDS: Ketorolac Tromethamine 30 MG (1 mL) VIAL IVP PRN (07:32)
[2024-11-19] MEDS: Pantoprazole 40 MG VIAL IVP SCH (07:33)
[2024-11-19 07:46] LABS: Anion Gap 10 mmol/L (10-20); BUN (Urea Nitrogen) 9 mg/dL (7.0-18.7); Calc. Creatinine Clearance 161 mL/min (70-130); Calcium 8.2 mg/dL (7.8-10.44); Carbon Dioxide 20 mmol/L (22-29); Chloride 98 mmol/L (98-107); Estimated GFR 124; Glucose 81 mg/dL (70-105); Potassium 4.7 mmol/L (3.5-5.1); Sodium 123 mmol/L (136-145)
[2024-11-19] MEDS ORDERED: Famotidine 20 MG TAB PO SCH (09:00)
[2024-11-19] MEDS ORDERED: Famotidine/PF 20 mg/2ml Vial SLOW IVP SCH (09:00)
[2024-11-19 13:14] LABS: Anion Gap 8 mmol/L (10-20); BUN (Urea Nitrogen) 8 mg/dL (7.0-18.7); Calc. Creatinine Clearance 147 mL/min (70-130); Calcium 8.2 mg/dL (7.8-10.44); Carbon Dioxide 22 mmol/L (22-29); Chloride 101 mmol/L (98-107); Estimated GFR 122; Glucose 94 mg/dL (70-105); Potassium 4.6 mmol/L (3.5-5.1); Sodium 126 mmol/L (136-145)
[2024-11-19] MEDS: Morphine 2 MG/ML VIAL SLOW IVP PRN (15:49)
[2024-11-20 07:41] LABS: Hematocrit 36.2 % (36.0-47.0); Hemoglobin 11.8 g/dL (12.0-16.0); Mean Corpuscular HGB CONC 32.6 g/dL (32.0-36.0); Mean Corpuscular Hemoglobin 26.9 pg (27.0-31.0); Mean Corpuscular Volume 82.5 fL (78.0-98.0); Mean Platelet Volume 9.3 fL (7.4-10.4); Platelet Count 241 10x3/uL (130-400); RBC Distribution Width 16.4 % (11.5-14.5); Red Blood Cell (RBC) Count 4.39 mill/uL (4.20-5.40)
[2024-11-20 07:47] LABS: ALT (SGPT) 50 U/L (8-55); AST (SGOT) 58 U/L (5-34); Albumin 3.4 g/dL (3.5-5.0); Alkaline Phosphatase 86 U/L (40-110); Anion Gap 17 mmol/L (10-20); BUN (Urea Nitrogen) 7 mg/dL (7.0-18.7); Bilirubin, Total 0.5 mg/dL (0.2-1.2); Calc. Creatinine Clearance 131 mL/min (70-130); Calcium 8.9 mg/dL (7.8-10.44); Carbon Dioxide 21 mmol/L (22-29); Chloride 99 mmol/L (98-107); Estimated GFR 118; Globulin 3.9 g/dL (2.4-3.5); Glucose 81 mg/dL (70-105); Potassium 4.6 mmol/L (3.5-5.1); Protein, Total 7.3 g/dL (6.0-8.3); Sodium 132 mmol/L (136-145)
[2024-11-20 09:03] LABS: Band 3 % (5-11); Eosinophils 16 % (0-10); Lymphocytes 16 % (21-51); Monocytes 14 % (0-10); Neutrophil 51 % (42-75); Platelet Adequacy Comment Platelets Normal; Polychromasia SLIGHT = 2-3 cells HPF (0-2)
[2024-11-20] MEDS ORDERED: Ketorolac Tromethamine 30 MG (1 mL) VIAL IVP PRN (09:28)
[2024-11-20] MEDS: Morphine 2 MG/ML VIAL SLOW IVP SCH (09:37)
[2024-11-20 10:43] LABS: BHCG - Serum Negative (NEGATIVE); Pregs Control Background? CLEAR/WHITE (CLR/WHITE); Pregs Control Bar Appear? YES (CONTROL BAR)
[2024-11-20 10:49] LABS: Anion Gap 16 mmol/L (10-20); Carbon Dioxide 20 mmol/L (22-29); Chloride 101 mmol/L (98-107); Potassium 4.8 mmol/L (3.5-5.1); Sodium 132 mmol/L (136-145)
[2024-11-20 10:50] LABS: BUN (Urea Nitrogen) 6 mg/dL (7.0-18.7); Calc. Creatinine Clearance 140 mL/min (70-130); Calcium 8.7 mg/dL (7.8-10.44); Estimated GFR 120; Glucose 75 mg/dL (70-105)
[2024-11-20 11:25] VITALS: BMI 23.5
[2024-11-20] MEDS ORDERED: PROPOFOL 20 ML ONE (15:31)
[2024-11-20] MEDS ORDERED: CEFAZOLIN 1 GM VIAL ONE (15:53)
[2024-11-20] MEDS ORDERED: fentaNYL 50 mcg/mL 1 mL Vial ONE (16:42)
[2024-11-21 05:58] LABS: #Basophils 0.06 10x3/uL (0.0-0.2); %Basophils 0.6 % (0.0-1.0); %Eosinophils 0.3 % (0.0-10.0); %Lymphocytes 14.1 % (21.0-51.0); %Monocytes 15.7 % (0.0-10.0); %Neutrophils 68.9 % (42.0-75.0); Hematocrit 35.1 % (36.0-47.0); Hemoglobin 11.4 g/dL (12.0-16.0); Mean Corpuscular HGB CONC 32.5 g/dL (32.0-36.0); Mean Corpuscular Hemoglobin 26.6 pg (27.0-31.0); Mean Corpuscular Volume 81.8 fL (78.0-98.0); Platelet Count 240 10x3/uL (130-400); RBC Distribution Width 16.9 % (11.5-14.5); Red Blood Cell (RBC) Count 4.29 mill/uL (4.20-5.40)
[2024-11-21 06:35] LABS: ALT (SGPT) 41 U/L (8-55); AST (SGOT) 43 U/L (5-34); Albumin 3.2 g/dL (3.5-5.0); Alkaline Phosphatase 73 U/L (40-110); Anion Gap 17 mmol/L (10-20); BUN (Urea Nitrogen) 11 mg/dL (7.0-18.7); Bilirubin, Total 0.5 mg/dL (0.2-1.2); Calc. Creatinine Clearance 125 mL/min (70-130); Calcium 8.8 mg/dL (7.8-10.44); Carbon Dioxide 18 mmol/L (22-29); Chloride 102 mmol/L (98-107); Estimated GFR 117; Globulin 4.3 g/dL (2.4-3.5); Glucose 97 mg/dL (70-105); Potassium 4.2 mmol/L (3.5-5.1); Protein, Total 7.5 g/dL (6.0-8.3); Sodium 133 mmol/L (136-145)
[2024-11-21] MEDS: Acetaminophen 325 MG TAB PO PRN (11:53)
[2024-11-21] MEDS ORDERED: Budesonide 0.5 MG/2 ML NEB NEB PRN (12:27)
[2024-11-21] MEDS ORDERED: Artificial Tear Ophth Sol 15 ML BOT EA EYE PRN (12:59)
[2024-11-21] MEDS ORDERED: GUAIFENESIN SF SOLN 200 MG/10 ML UDCUP PER TUBE PRN (13:00)
[2024-11-21] MEDS: Gabapentin 300 MG CAP PER TUBE SCH (13:54)
[2024-11-21] MEDS: Baclofen 10 MG TAB PER TUBE SCH (13:54)
[2024-11-21 14:19] LABS: Bacteria/HPF None Seen HPF (None Seen); Bilirubin Negative (Negative); Blood, Urine Negative (Negative); CAUTI Indications for Culture Fever or rigors; Clarity Turbid (Clear); Glucose, Urine (Dipstick) Normal (Negative); Ketone, Urine 100 mg/dL (Negative); Leukocyte 500 Leu/uL (Negative); Nitrite 2+ (Negative); Protein, Urine (Dipstick) 70 mg/dL (Neg-Trace); RBC/HPF 0-3 HPF (0-3); Specific Gravity, Urine 1.028 (1.002-1.036); Squamous Epithelial 0-3 HPF (0-3); Urobilinogen Normal mg/dL (Less than 2); WBC/HPF Greater than 50 HPF (0-3)
[2024-11-21 14:22] LABS: Urine Culture Reflex Yes Yes
[2024-11-21] MEDS: HYDROcodone/Acetaminophen 5/325 mg Tablet PO PRN (18:08)
[2024-11-21] MEDS: diphenhydrAMINE 25 MG CAP PER TUBE PRN (18:12)
[2024-11-21] MEDS ORDERED: Non-Formulary Item 1 EACH (Amino Acids/Protein Hydrolys [Pro-Stat Awc Liquid Packet] 30 M PER TUBE SCH (21:00)
[2024-11-21] MEDS: Oxybutynin 5 MG TAB PER TUBE SCH (21:47)
[2024-11-21] MEDS: Famotidine 20 MG TAB PER TUBE SCH (21:47)
[2024-11-21] MEDS: busPIRone HCl 10 MG TAB PER TUBE SCH (21:47)
[2024-11-22] MEDS: Ondansetron PF 4 MG/2 ML Vial IVP PRN (06:07)
[2024-11-22] MEDS: Loratadine 10 MG TAB PER TUBE SCH (08:04)
[2024-11-22] MEDS: Sodium Chloride 1 GM TAB PER TUBE SCH (08:04)
[2024-11-22] MEDS: Senokot 8.6 MG TAB PER TUBE SCH (08:04)
[2024-11-22] MEDS: Ketoconazole 2% Cream 15 gm Tube TOP SCH (08:08)
[2024-11-22] MEDS: Fluticasone Propionate Nasal Spray 16 gm Bottle NASAL SCH (08:08)
[2024-11-22 09:02] LABS: Hematocrit 35.5 % (36.0-47.0); Hemoglobin 11.6 g/dL (12.0-16.0); Mean Corpuscular HGB CONC 32.7 g/dL (32.0-36.0); Mean Corpuscular Volume 82.6 fL (78.0-98.0); Platelet Count 230 10x3/uL (130-400); RBC Distribution Width 17.2 % (11.5-14.5)
[2024-11-22 09:08] LABS: ALT (SGPT) 38 U/L (8-55); AST (SGOT) 37 U/L (5-34); Albumin 3.2 g/dL (3.5-5.0); Alkaline Phosphatase 76 U/L (40-110); Anion Gap 14 mmol/L (10-20); BUN (Urea Nitrogen) 22 mg/dL (7.0-18.7); Bilirubin, Total 0.4 mg/dL (0.2-1.2); Calc. Creatinine Clearance 137 mL/min (70-130); Calcium 8.5 mg/dL (7.8-10.44); Carbon Dioxide 23 mmol/L (22-29); Chloride 108 mmol/L (98-107); Estimated GFR 120; Glucose 89 mg/dL (70-105); Potassium 4.1 mmol/L (3.5-5.1); Protein, Total 7.2 g/dL (6.0-8.3); Sodium 141 mmol/L (136-145)
[2024-11-22 09:27] LABS: Band 12 % (5-11); Eosinophils 10 % (0-10); Lymphocytes 16 % (21-51); Monocytes 12 % (0-10); Neutrophil 42 % (42-75); Platelet Adequacy Comment Platelets Normal; Polychromasia SLIGHT = 2-3 cells HPF (0-2); Reactive Lymphocytes 7 % (0-10); Smudge Cells 5.9 %
[2024-11-22] MEDS: cefTRIAXone\\ROCEPHIN 1 GM in Sodium Chloride 0.9% 100 ML IVPB SCH (11:12)
[2024-11-22] MEDS: hydrOXYzine 25 MG TAB PER TUBE PRN (13:33)
[2024-11-22] MEDS: Magnesium Oxide 400 MG TAB PER TUBE SCH (20:36)
[2024-11-22] MEDS: traZODone HCl 50 MG TAB PER TUBE SCH (20:37)
[2024-11-23 05:32] LABS: #Basophils 0.08 10x3/uL (0.0-0.2); %Basophils 0.9 % (0.0-1.0); %Eosinophils 20.1 % (0.0-10.0); %Lymphocytes 33.8 % (21.0-51.0); Hematocrit 39.1 % (36.0-47.0); Hemoglobin 12.3 g/dL (12.0-16.0); Mean Corpuscular HGB CONC 31.5 g/dL (32.0-36.0); Mean Corpuscular Hemoglobin 26.6 pg (27.0-31.0); Mean Corpuscular Volume 84.4 fL (78.0-98.0); Mean Platelet Volume 9.7 fL (7.4-10.4); Platelet Count 234 10x3/uL (130-400); RBC Distribution Width 17.3 % (11.5-14.5); Red Blood Cell (RBC) Count 4.63 mill/uL (4.20-5.40)
[2024-11-23 06:19] LABS: ALT (SGPT) 34 U/L (8-55); AST (SGOT) 30 U/L (5-34); Albumin 3.2 g/dL (3.5-5.0); Alkaline Phosphatase 66 U/L (40-110); Anion Gap 15 mmol/L (10-20); BUN (Urea Nitrogen) 23 mg/dL (7.0-18.7); Bilirubin, Total 0.4 mg/dL (0.2-1.2); Calc. Creatinine Clearance 125 mL/min (70-130); Calcium 8.6 mg/dL (7.8-10.44); Carbon Dioxide 22 mmol/L (22-29); Chloride 109 mmol/L (98-107); Estimated GFR 117; Globulin 4.1 g/dL (2.4-3.5); Glucose 77 mg/dL (70-105); Potassium 4.4 mmol/L (3.5-5.1); Protein, Total 7.3 g/dL (6.0-8.3); Sodium 142 mmol/L (136-145)
[2024-11-23] MEDS: Aspirin Chewable 81 MG TAB PO SCH (08:51)
[2024-11-23] MEDS: Vancomycin 1 GM in Premix 1 BAG IVPB SCH (09:56)
[2024-11-23] MEDS: Vancomycin (BATCH) 1.5 GM in Premix 1 BAG IVPB SCH (14:51)
[2024-11-24] MEDS: Vancomycin 1 GM in Premix 1 BAG IVPB SCH (00:27)
[2024-11-24 06:54] LABS: #Basophils 0.07 10x3/uL (0.0-0.2); %Basophils 0.6 % (0.0-1.0); %Eosinophils 23.1 % (0.0-10.0); %Lymphocytes 11.6 % (21.0-51.0); %Monocytes 3.9 % (0.0-10.0); %Neutrophils 60.5 % (42.0-75.0); Hematocrit 35.5 % (36.0-47.0); Hemoglobin 11.2 g/dL (12.0-16.0); Mean Corpuscular HGB CONC 31.5 g/dL (32.0-36.0); Mean Corpuscular Hemoglobin 27.2 pg (27.0-31.0); Mean Corpuscular Volume 86.2 fL (78.0-98.0); Mean Platelet Volume 10.1 fL (7.4-10.4); Platelet Count 198 10x3/uL (130-400); RBC Distribution Width 17.1 % (11.5-14.5); Red Blood Cell (RBC) Count 4.12 mill/uL (4.20-5.40)
[2024-11-24 07:30] LABS: ALT (SGPT) 29 U/L (8-55); AST (SGOT) 32 U/L (5-34); Albumin 2.8 g/dL (3.5-5.0); Alkaline Phosphatase 63 U/L (40-110); Anion Gap 11 mmol/L (10-20); BUN (Urea Nitrogen) 21 mg/dL (7.0-18.7); Bilirubin, Total 0.6 mg/dL (0.2-1.2); Calc. Creatinine Clearance 131 mL/min (70-130); Calcium 8.3 mg/dL (7.8-10.44); Carbon Dioxide 23 mmol/L (22-29); Chloride 111 mmol/L (98-107); Estimated GFR 118; Globulin 3.7 g/dL (2.4-3.5); Glucose 197 mg/dL (70-105); Potassium 4.3 mmol/L (3.5-5.1); Protein, Total 6.5 g/dL (6.0-8.3); Sodium 141 mmol/L (136-145)
[2024-11-25 06:26] LABS: Bilirubin Negative (Negative); Blood, Urine Negative (Negative); CAUTI Indications for Culture Fever or rigors; Clarity Turbid (Clear); Glucose, Urine (Dipstick) 300 mg/dL (Negative); Ketone, Urine Negative (Negative); Leukocyte 250 Leu/uL (Negative); Nitrite Negative (Negative); Protein, Urine (Dipstick) 50 mg/dL (Neg-Trace); Specific Gravity, Urine 1.033 (1.002-1.036); Squamous Epithelial 0-3 HPF (0-3); Urobilinogen Normal mg/dL (Less than 2); pH, Urine 6.5 (5.0-9.0)
[2024-11-25 06:27] LABS: Bacteria/HPF 1+ HPF (None Seen); Yeast-Budding 1+ HPF (None Seen)
[2024-11-25 06:29] LABS: Urine Culture Reflex Yes Yes
[2024-11-25 06:46] LABS: Vancomycin, Random 13.1 ug/mL (See Comment)
[2024-11-25 06:48] LABS: ALT (SGPT) 30 U/L (8-55); AST (SGOT) 35 U/L (5-34); Albumin 2.8 g/dL (3.5-5.0); Alkaline Phosphatase 58 U/L (40-110); Anion Gap 14 mmol/L (10-20); BUN (Urea Nitrogen) 16 mg/dL (7.0-18.7); Bilirubin, Total 0.6 mg/dL (0.2-1.2); Calc. Creatinine Clearance 147 mL/min (70-130); Calcium 8.1 mg/dL (7.8-10.44); Carbon Dioxide 22 mmol/L (22-29); Chloride 109 mmol/L (98-107); Estimated GFR 122; Glucose 98 mg/dL (70-105); Potassium 4.8 mmol/L (3.5-5.1); Protein, Total 6.8 g/dL (6.0-8.3); Sodium 140 mmol/L (136-145)
[2024-11-25 07:00] LABS: #Basophils 0.05 10x3/uL (0.0-0.2); %Basophils 0.5 % (0.0-1.0); %Eosinophils 8.2 % (0.0-10.0); %Lymphocytes 15.6 % (21.0-51.0); %Neutrophils 64.3 % (42.0-75.0); Hematocrit 32.8 % (36.0-47.0); Hemoglobin 10.4 g/dL (12.0-16.0); Mean Corpuscular HGB CONC 31.7 g/dL (32.0-36.0); Mean Corpuscular Hemoglobin 26.7 pg (27.0-31.0); Mean Corpuscular Volume 84.3 fL (78.0-98.0); Platelet Count 207 10x3/uL (130-400); RBC Distribution Width 16.9 % (11.5-14.5); Red Blood Cell (RBC) Count 3.89 mill/uL (4.20-5.40)
[2024-11-25 07:12] LABS: Band 16 % (5-11); Eosinophils 6 % (0-10); Large Platelets 3.4 % (0-5); Lymphocytes 18 % (21-51); Metamyelocyte 3 % (0-0); Monocytes 4 % (0-10); Neutrophil 52 % (42-75); Platelet Adequacy Comment Platelets Normal; Polychromasia SLIGHT = 2-3 cells HPF (0-2); Reactive Lymphocytes 2 % (0-10)
[2024-11-25] MEDS: Vancomycin (BATCH) 1.25 GM in Premix 1 BAG IVPB SCH ×2 (14:32→23:17)
[2024-11-26 06:37] LABS: #Basophils 0.08 10x3/uL (0.0-0.2); %Basophils 0.9 % (0.0-1.0); %Eosinophils 12.9 % (0.0-10.0); %Lymphocytes 17.2 % (21.0-51.0); %Monocytes 15.2 % (0.0-10.0); %Neutrophils 53.5 % (42.0-75.0); Hematocrit 29.2 % (36.0-47.0); Hemoglobin 9.1 g/dL (12.0-16.0); Mean Corpuscular HGB CONC 31.2 g/dL (32.0-36.0); Mean Corpuscular Hemoglobin 26.8 pg (27.0-31.0); Mean Corpuscular Volume 85.9 fL (78.0-98.0); Mean Platelet Volume 10.7 fL (7.4-10.4); Platelet Count 219 10x3/uL (130-400); RBC Distribution Width 16.7 % (11.5-14.5)
[2024-11-26 06:59] LABS: ALT (SGPT) 26 U/L (8-55); AST (SGOT) 28 U/L (5-34); Albumin 2.5 g/dL (3.5-5.0); Alkaline Phosphatase 62 U/L (40-110); Anion Gap 11 mmol/L (10-20); BUN (Urea Nitrogen) 15 mg/dL (7.0-18.7); Bilirubin, Total 0.5 mg/dL (0.2-1.2); Calc. Creatinine Clearance 177 mL/min (70-130); Calcium 8.2 mg/dL (7.8-10.44); Carbon Dioxide 22 mmol/L (22-29); Chloride 109 mmol/L (98-107); Estimated GFR 127; Glucose 88 mg/dL (70-105); Potassium 4.1 mmol/L (3.5-5.1); Protein, Total 6.5 g/dL (6.0-8.3); Sodium 138 mmol/L (136-145)
[2024-11-27 07:16] LABS: #Basophils 0.05 10x3/uL (0.0-0.2); %Basophils 0.8 % (0.0-1.0); %Eosinophils 21.5 % (0.0-10.0); %Lymphocytes 16.8 % (21.0-51.0); %Neutrophils 45.6 % (42.0-75.0); Hematocrit 27.4 % (36.0-47.0); Hemoglobin 8.9 g/dL (12.0-16.0); Mean Corpuscular HGB CONC 32.5 g/dL (32.0-36.0); Mean Platelet Volume 10.4 fL (7.4-10.4); Platelet Count 216 10x3/uL (130-400)
[2024-11-27 07:31] LABS: Vancomycin, Random 45.4 ug/mL (See Comment)
[2024-11-27 07:36] LABS: ALT (SGPT) 32 U/L (8-55); AST (SGOT) 42 U/L (5-34); Albumin 2.3 g/dL (3.5-5.0); Alkaline Phosphatase 52 U/L (40-110); Anion Gap 9 mmol/L (10-20); BUN (Urea Nitrogen) 12 mg/dL (7.0-18.7); Bilirubin, Total 0.4 mg/dL (0.2-1.2); Calc. Creatinine Clearance 167 mL/min (70-130); Carbon Dioxide 22 mmol/L (22-29); Chloride 104 mmol/L (98-107); Estimated GFR 126; Globulin 3.9 g/dL (2.4-3.5); Glucose 145 mg/dL (70-105); Potassium 4.2 mmol/L (3.5-5.1); Protein, Total 6.2 g/dL (6.0-8.3); Sodium 131 mmol/L (136-145)
[2024-11-27] MEDS: Pantoprazole DR 40 MG TAB PO SCH (09:38)
[2024-11-27 11:27] LABS: Vancomycin, Random 18.8 ug/mL (See Comment)
[2024-11-27] MEDS: Vancomycin (BATCH) 1.25 GM in Premix 1 BAG IVPB SCH (14:48)
[2024-11-30] MEDS: Morphine 2 MG/ML VIAL SLOW IVP PRN (08:59)
[2024-12-01 07:22] LABS: Vancomycin, Random 36.1 ug/mL (See Comment)
[2024-12-01] MEDS ORDERED: Lidocaine 1% PF 5 ML VIAL ONE (09:43)
[2024-12-01] MEDS ORDERED: Sodium Bicarbonate 2.5 MEQ/5 ML SDV ONE (09:43)
[2024-12-01 15:12] VITALS: BP 102/68; TEMP 97.9
== END 2024-12-01 15:10 | DRG 393 ==
LOC: ERS 00:56 → T4-A 03:11 → OBSVTOIN 11-20 15:18
PROVIDERS: ADMIT Internal Medicine; ATTEND Internal Medicine
PROC: 0DH63UZ Insertion of Feeding Device into Stomach, Percutaneous Approach (ICD-10-PCS; principal; 2024-11-20)
PROC: 3E03329 Introduction of Other Anti-infective into Peripheral Vein, Percutaneous Approach (ICD-10-PCS; 2024-11-22)
PROC: 02HV33Z Insertion of Infusion Device into Superior Vena Cava, Percutaneous Approach (ICD-10-PCS; 2024-12-01)
PROC: B5181ZA Fluoroscopy of Superior Vena Cava using Low Osmolar Contrast, Guidance (ICD-10-PCS; 2024-12-01)
DX: Z43.1 Encounter for attention to gastrostomy (principal); A41.02 Sepsis due to Methicillin resistant Staphylococcus aureus; G82.50 Quadriplegia, unspecified; L89.154 Pressure ulcer of sacral region, stage 4; E22.2 Syndrome of inappropriate secretion of antidiuretic hormone; Z98.890 Other specified postprocedural states; Z88.2 Allergy status to sulfonamides; K21.9 Gastro-esophageal reflux disease without esophagitis; D63.1 Anemia in chronic kidney disease; Z79.899 Other long term (current) drug therapy; N18.1 Chronic kidney disease, stage 1; I12.9 Hypertensive chronic kidney disease with stage 1 through stage 4 chronic kidney disease, or unspecified chronic kidney disease; F32.A Depression, unspecified; F41.9 Anxiety disorder, unspecified; N31.9 Neuromuscular dysfunction of bladder, unspecified; Z79.82 Long term (current) use of aspirin; L20.9 Atopic dermatitis, unspecified
CPT/HCPCS: 36415; 36573; 71045; 80053; 80202; 81001; 82565; 83735; 83930; 83935; 84145; 84300; 84703; 85025; 86141; 87040; 87077; 87086; 87149; 87186; 87633; 93306; 96374; 96375; 96376; 97139; 99284; B4087; C1751; G0378; J0690; J0696; J1885; J2272; J2405; J2470; J2704; J3010; J3370; J3475; J7042

== ENCOUNTER 2024-12-09 23:03 | Inpatient (IN) | payer OTHER ==
[2024-12-09] MEDS ORDERED: Cefepime 2 GM VIAL ONE (23:37)
[2024-12-09] MEDS ORDERED: fentaNYL 50 mcg/mL 1 mL Vial ONE (23:37)
[2024-12-09] MEDS ORDERED: Sodium Chloride 0.9% 100 ML ONE (23:37)
[2024-12-09 23:38] LABS: Bilirubin Negative (Negative); Blood, Urine Negative (Negative); CAUTI Indications for Culture Fever or rigors; Clarity Extra Turbid (Clear); Glucose, Urine (Dipstick) Normal (Negative); Ketone, Urine Negative (Negative); Leukocyte 500 Leu/uL (Negative); Nitrite Negative (Negative); Protein, Urine (Dipstick) 100 mg/dL (Neg-Trace); Specific Gravity, Urine 1.047 (1.002-1.036); Squamous Epithelial 0-3 HPF (0-3); Urobilinogen Normal mg/dL (Less than 2); WBC/HPF Greater than 50 HPF (0-3); pH, Urine 6.5 (5.0-9.0)
[2024-12-09 23:39] LABS: Bacteria/HPF 1+ HPF (None Seen)
[2024-12-09 23:40] LABS: Urine Culture Reflex Yes Yes
[2024-12-09 23:44] LABS: Amphetamine Not Detected (NotDetected); Barbiturates Screen Not Detected (NotDetected); Benzodiazepine Screen Not Detected (NotDetected); Cocaine Metabolite Screen Not Detected (NotDetected); Methadone Not Detected (NotDetected); Methamphetamine Not Detected (NotDetected); Opiate Screen Not Detected (NotDetected); Oxycodone Screen Not Detected (NotDetected); Phencyclidine (PCP) Not Detected (NotDetected); THC/Cannabinoid Screen Not Detected (NotDetected); Tricyclic Screen Not Detected (NotDetected)
[2024-12-09 23:51] LABS: #Basophils 0.04 10x3/uL (0.0-0.2); %Basophils 0.4 % (0.0-1.0); %Lymphocytes 4.6 % (21.0-51.0); %Monocytes 2.8 % (0.0-10.0); %Neutrophils 90.6 % (42.0-75.0); Hematocrit 38.5 % (36.0-47.0); Hemoglobin 12.1 g/dL (12.0-16.0); Mean Corpuscular HGB CONC 31.4 g/dL (32.0-36.0); Mean Corpuscular Hemoglobin 26.1 pg (27.0-31.0); Mean Platelet Volume 9.5 fL (7.4-10.4); Platelet Count 363 10x3/uL (130-400); RBC Distribution Width 15.9 % (11.5-14.5); Red Blood Cell (RBC) Count 4.64 mill/uL (4.20-5.40)
[2024-12-10 00:23] LABS: BHCG - Serum Negative (NEGATIVE); Pregs Control Background? CLEAR/WHITE (CLR/WHITE); Pregs Control Bar Appear? YES (CONTROL BAR)
[2024-12-10 00:32] LABS: ALT (SGPT) 61 U/L (8-55); AST (SGOT) 54 U/L (5-34); Albumin 3.3 g/dL (3.5-5.0); Alkaline Phosphatase 92 U/L (40-110); Anion Gap 14 mmol/L (10-20); BUN (Urea Nitrogen) 21 mg/dL (7.0-18.7); Bilirubin, Total 0.5 mg/dL (0.2-1.2); Calc. Creatinine Clearance 0 mL/min (70-130); Carbon Dioxide 17 mmol/L (22-29); Chloride 104 mmol/L (98-107); Estimated GFR 121; Globulin 4.9 g/dL (2.4-3.5); Glucose 107 mg/dL (70-105); Potassium 4.5 mmol/L (3.5-5.1); Protein, Total 8.2 g/dL (6.0-8.3); Sodium 130 mmol/L (136-145)
[2024-12-10 00:34] LABS: Troponin I Less than 0.010 ng/mL (< 0.028)
[2024-12-10] MEDS ORDERED: Acetaminophen 500 MG TAB ONE (01:10)
[2024-12-10] MEDS ORDERED: NOREPINEPHRINE 8 MG/250 ML-D5W 250 ML ONE (02:28)
[2024-12-10 02:48] LABS: Lipase 17 U/L (8-78)
[2024-12-10 02:50] LABS: Acetaminophen Less than 10 mcg/mL (Less than 10); Alcohol Less than 10.0 mg/dL (Less than 10); Salicylate Less than 8.0 mg/dL (Less than 8.0)
[2024-12-10] MEDS ORDERED: Ondansetron PF 4 MG/2 ML Vial ONE (02:57)
[2024-12-10] MEDS ORDERED: fentaNYL 50 mcg/mL 1 mL Vial ONE (04:57)
[2024-12-10] MEDS: Vancomycin (BATCH) 2 GM in Premix 1 BAG IVPB SCH (07:27)
[2024-12-10] MEDS: Sodium Chloride 0.9% 1,000 ML IV SCH (07:27)
[2024-12-10 08:41] LABS: Actual Bicarbonate (HCO3v) 20.3 mEq/L (22-28); Base Excess -4.5 mEq/L (-2.0 to +3.0); Calcium, Ionized (venous) 1.15 mmol/L (1.16-1.32); Chloride (VBG) 106 mmol/L (98-106); Hematocrit-VBG 33 % (36.0-47.0); Hemoglobin (Hb) 11.3 g/dL (11.7-15.5); Potassium (VBG) 3.93 mmol/L (3.70-5.30); Sodium 135 mmol/L (133-146); pH (venous) 7.363 (7.32-7.43)
[2024-12-10] MEDS ORDERED: MD-Gastroview 120 ML BOT ONE (08:49)
[2024-12-10] MEDS: Ondansetron PF 4 MG/2 ML Vial IVP PRN (09:14)
[2024-12-10 09:23] LABS: ALT (SGPT) 49 U/L (8-55); AST (SGOT) 43 U/L (5-34); Albumin 2.7 g/dL (3.5-5.0); Alkaline Phosphatase 73 U/L (40-110); Anion Gap 10 mmol/L (10-20); BUN (Urea Nitrogen) 15 mg/dL (7.0-18.7); Bilirubin, Total 0.4 mg/dL (0.2-1.2); Calc. Creatinine Clearance 127 mL/min (70-130); Carbon Dioxide 20 mmol/L (22-29); Chloride 108 mmol/L (98-107); Estimated GFR 121; Globulin 3.9 g/dL (2.4-3.5); Glucose 106 mg/dL (70-105); Potassium 3.9 mmol/L (3.5-5.1); Protein, Total 6.6 g/dL (6.0-8.3); Sodium 134 mmol/L (136-145)
[2024-12-10] MEDS: Morphine 2 MG/ML VIAL SLOW IVP PRN (10:14)
[2024-12-10] MEDS: Enoxaparin 40 MG (0.4 mL) SYRINGE SC SCH (10:14)
[2024-12-10] MEDS: Gabapentin 300 MG CAP PER TUBE SCH (10:24)
[2024-12-10] MEDS: Baclofen 10 MG TAB PER TUBE SCH (10:24)
[2024-12-10] MEDS: HYDROcodone/Acetaminophen 5/325 mg Tablet PO SCH (10:24)
[2024-12-10] MEDS: Cefepime 2 GM in Sodium Chloride 0.9% 100 ML IVPB SCH (12:30)
[2024-12-10 14:36] LABS: Campy jejuni + coli by PCR Negative (Negative); STEC Shiga Toxin 1+2 Negative (Negative); Salmonella spp. by PCR Negative (Negative); Shigella spp + EIEC by PCR Negative (Negative)
[2024-12-10] MEDS: HYDROcodone/Acetaminophen 5/325 mg Tablet PO PRN (17:53)
[2024-12-10] MEDS: Vancomycin (BATCH) 1.5 GM in Premix 1 BAG IVPB SCH (21:29)
[2024-12-10] MEDS: Oxybutynin 5 MG TAB PER TUBE SCH (23:45)
[2024-12-10] MEDS: Midodrine HCl 5 MG TAB PER TUBE SCH (23:45)
[2024-12-10] MEDS: diphenhydrAMINE 25 MG CAP PER TUBE PRN (23:45)
[2024-12-10] MEDS: hydrOXYzine 25 MG TAB PER TUBE PRN (23:45)
[2024-12-10] MEDS: traZODone HCl 50 MG TAB PER TUBE SCH (23:45)
[2024-12-11] MEDS: Methocarbamol 500 MG TAB PER TUBE PRN (04:49)
[2024-12-11 05:31] LABS: #Basophils 0.04 10x3/uL (0.0-0.2); %Basophils 1.1 % (0.0-1.0); %Eosinophils 3.6 % (0.0-10.0); %Lymphocytes 39.2 % (21.0-51.0); %Monocytes 19.2 % (0.0-10.0); %Neutrophils 36.6 % (42.0-75.0); Hematocrit 31.7 % (36.0-47.0); Hemoglobin 9.7 g/dL (12.0-16.0); Mean Corpuscular HGB CONC 30.6 g/dL (32.0-36.0); Mean Corpuscular Hemoglobin 26.1 pg (27.0-31.0); Mean Corpuscular Volume 85.2 fL (78.0-98.0); Mean Platelet Volume 10.2 fL (7.4-10.4); Platelet Count 246 10x3/uL (130-400); RBC Distribution Width 16.7 % (11.5-14.5); Red Blood Cell (RBC) Count 3.72 mill/uL (4.20-5.40)
[2024-12-11 05:36] LABS: Vancomycin, Random 25.5 ug/mL (See Comment)
[2024-12-11 05:39] LABS: Carbon Dioxide 21 mmol/L (22-29); Chloride 115 mmol/L (98-107); Potassium 3.8 mmol/L (3.5-5.1); Sodium 143 mmol/L (136-145)
[2024-12-11 05:40] LABS: ALT (SGPT) 59 U/L (8-55); AST (SGOT) 65 U/L (5-34); Albumin 2.7 g/dL (3.5-5.0); Alkaline Phosphatase 64 U/L (40-110); Anion Gap 11 mmol/L (10-20); BUN (Urea Nitrogen) 17 mg/dL (7.0-18.7); Bilirubin, Total 0.3 mg/dL (0.2-1.2); Calc. Creatinine Clearance 144 mL/min (70-130); Calcium 8.3 mg/dL (7.8-10.44); Estimated GFR 125; Globulin 3.9 g/dL (2.4-3.5); Glucose 78 mg/dL (70-105); Protein, Total 6.6 g/dL (6.0-8.3)
[2024-12-11] MEDS: Vancomycin HCl 750 MG in Sodium Chloride 0.9% 250 ML 250 ML IVPB SCH ×2 (08:21→21:28)
[2024-12-11] MEDS: Oxybutynin 5 MG TAB PER TUBE SCH (09:27)
[2024-12-11] MEDS: Midodrine HCl 5 MG TAB PER TUBE SCH (09:28)
[2024-12-11] MEDS: Loratadine 10 MG TAB PER TUBE SCH (09:29)
[2024-12-11] MEDS: busPIRone HCl 10 MG TAB PER TUBE SCH (09:29)
[2024-12-11] MEDS: metroNIDAZOLE 500 MG TAB PO SCH (14:24)
[2024-12-11] MEDS: Cefepime 2 GM in Sodium Chloride 0.9% 100 ML IVPB SCH (21:15)
[2024-12-12 05:49] LABS: #Basophils 0.04 10x3/uL (0.0-0.2); %Eosinophils 13.4 % (0.0-10.0); %Lymphocytes 43.3 % (21.0-51.0); %Monocytes 12.4 % (0.0-10.0); %Neutrophils 29.6 % (42.0-75.0); Hematocrit 29.1 % (36.0-47.0); Mean Corpuscular HGB CONC 30.9 g/dL (32.0-36.0); Mean Corpuscular Hemoglobin 26.1 pg (27.0-31.0); Mean Corpuscular Volume 84.3 fL (78.0-98.0); Platelet Count 204 10x3/uL (130-400); RBC Distribution Width 16.9 % (11.5-14.5); Red Blood Cell (RBC) Count 3.45 mill/uL (4.20-5.40)
[2024-12-12 06:02] LABS: ALT (SGPT) 45 U/L (8-55); AST (SGOT) 44 U/L (5-34); Albumin 2.3 g/dL (3.5-5.0); Alkaline Phosphatase 55 U/L (40-110); Anion Gap 9 mmol/L (10-20); BUN (Urea Nitrogen) 8 mg/dL (7.0-18.7); Bilirubin, Total 0.2 mg/dL (0.2-1.2); Calc. Creatinine Clearance 156 mL/min (70-130); Calcium 7.9 mg/dL (7.8-10.44); Carbon Dioxide 22 mmol/L (22-29); Chloride 113 mmol/L (98-107); Estimated GFR 127; Globulin 3.3 g/dL (2.4-3.5); Glucose 95 mg/dL (70-105); Potassium 3.7 mmol/L (3.5-5.1); Protein, Total 5.6 g/dL (6.0-8.3); Sodium 140 mmol/L (136-145)
[2024-12-12] MEDS: Morphine 2 MG/ML VIAL SLOW IVP PRN (12:05)
[2024-12-12] MEDS: Ciprofloxacin Lactate/D5W 400 MG in Premix 1 BAG IVPB SCH (20:04)
[2024-12-13] MEDS: SULBACTAM IVPB SCH (00:02)
[2024-12-13] MEDS: SODIUM CHLORIDE IVPB SCH (00:02)
[2024-12-13] MEDS: [UNRECOGNIZED DRUG - OTHER] IVPB SCH (00:02)
[2024-12-13 06:02] VITALS: BMI 24.6
[2024-12-13 06:09] LABS: #Basophils 0.03 10x3/uL (0.0-0.2); %Basophils 0.7 % (0.0-1.0); %Eosinophils 12.4 % (0.0-10.0); %Monocytes 9.7 % (0.0-10.0); Hematocrit 29.5 % (36.0-47.0); Hemoglobin 9.3 g/dL (12.0-16.0); Mean Corpuscular HGB CONC 31.5 g/dL (32.0-36.0); Mean Corpuscular Hemoglobin 26.1 pg (27.0-31.0); Mean Corpuscular Volume 82.6 fL (78.0-98.0); Mean Platelet Volume 9.7 fL (7.4-10.4); Platelet Count 178 10x3/uL (130-400); RBC Distribution Width 16.7 % (11.5-14.5); Red Blood Cell (RBC) Count 3.57 mill/uL (4.20-5.40)
[2024-12-13 06:20] LABS: Vancomycin, Random 9.2 ug/mL (See Comment)
[2024-12-13 06:23] LABS: ALT (SGPT) 46 U/L (8-55); AST (SGOT) 47 U/L (5-34); Albumin 2.4 g/dL (3.5-5.0); Alkaline Phosphatase 53 U/L (40-110); Anion Gap 9 mmol/L (10-20); BUN (Urea Nitrogen) 6 mg/dL (7.0-18.7); Bilirubin, Total 0.3 mg/dL (0.2-1.2); Calc. Creatinine Clearance 198 mL/min (70-130); Calcium 7.8 mg/dL (7.8-10.44); Carbon Dioxide 25 mmol/L (22-29); Chloride 106 mmol/L (98-107); Estimated GFR 129; Globulin 3.4 g/dL (2.4-3.5); Glucose 99 mg/dL (70-105); Potassium 3.7 mmol/L (3.5-5.1); Protein, Total 5.8 g/dL (6.0-8.3); Sodium 136 mmol/L (136-145)
[2024-12-13] MEDS: Vancomycin HCl 750 MG in Sodium Chloride 0.9% 250 ML 250 ML IVPB SCH ×2 (11:26→17:10)
[2024-12-13 13:38] LABS: Norovirus GI Negative (Negative); Norovirus GII Positive (Negative)
[2024-12-13 14:20] LABS: Troponin I Less than 0.010 ng/mL (< 0.028)
[2024-12-13] MEDS: Promethazine HCl 25 MG in Sodium Chloride 0.9% 50 ML IVPB PRN (15:06)
[2024-12-13] MEDS ORDERED: Nitroglycerin 0.4 MG TAB (25 Tab Bottle) SL PRN (15:50)
[2024-12-13] MEDS ORDERED: LevoFLOXacin 750 mg/D5W 750 MG in Premix 1 BAG IVPB SCH (17:30)
[2024-12-13] MEDS: Saccharomyces boulardii 250 MG CAP PER TUBE SCH (18:25)
[2024-12-13] MEDS: LEVOFLOXACIN 250 MG/10 ML PER TUBE SCH (22:11)
[2024-12-14] MEDS: Saccharomyces boulardii 250 MG CAP PER TUBE SCH (08:39)
[2024-12-14 11:39] LABS: Reference Lab Name LABCORP
[2024-12-14] MEDS: [UNRECOGNIZED DRUG - OTHER] IVPB SCH (23:07)
[2024-12-14] MEDS: SULBACTAM IVPB SCH (23:07)
[2024-12-14] MEDS: SODIUM CHLORIDE IVPB SCH (23:07)
[2024-12-15 10:18] VITALS: BMI 24.6
[2024-12-15] MEDS: Ciprofloxacin Lactate/D5W 400 MG in Premix 1 BAG IVPB SCH (20:25)
[2024-12-16 05:56] LABS: Vancomycin, Random 17.3 ug/mL (See Comment)
[2024-12-16] MEDS: Ciprofloxacin 500 MG TAB PER TUBE SCH (21:55)
[2024-12-17 06:02] LABS: ALT (SGPT) 36 U/L (Less than 34); AST (SGOT) 44 U/L (11-34); Albumin 2.5 g/dL (3.1-4.5); Alkaline Phosphatase 52 U/L (40-110); Anion Gap 9 mmol/L (10-20); BUN (Urea Nitrogen) 9 mg/dL (7.0-18.7); Bilirubin, Total 0.3 mg/dL (0.3-1.2); Calc. Creatinine Clearance 218 mL/min (70-130); Calcium 8.3 mg/dL (7.8-10.44); Carbon Dioxide 26 mmol/L (22-29); Chloride 107 mmol/L (98-107); Estimated GFR 132; Globulin 3.2 g/dL (2.4-3.5); Glucose 76 mg/dL (70-105); Magnesium 1.7 mg/dL (1.6-2.6); Potassium 4.2 mmol/L (3.5-5.1); Protein, Total 5.7 g/dL (6.0-8.3); Sodium 138 mmol/L (136-145)
[2024-12-17 06:09] LABS: Band 3 % (5-11); Eosinophils 30 % (0-10); Hypochromia SLIGHT = 6-15 cells (100X) (0-5/hpf); Lymphocytes 35 % (21-51); Monocytes 12 % (0-10); Neutrophil 19 % (42-75); Plasma Cells 0 % (0-0); Platelet Adequacy Comment Appears Adequate; Reactive Lymphocytes 1 % (0-10); Total Cell Count 100
[2024-12-17 06:16] LABS: #Basophils 0.03 10x3/uL (0.0-0.2); %Basophils 0.6 % (0.0-1.0); %Eosinophils 38.9 % (0.0-10.0); %Lymphocytes 35.4 % (21.0-51.0); %Monocytes 6.5 % (0.0-10.0); %Neutrophils 18.4 % (42.0-75.0); Hematocrit 28.5 % (36.0-47.0); Hemoglobin 8.8 g/dL (12.0-16.0); Mean Corpuscular HGB CONC 30.9 g/dL (32.0-36.0); Mean Corpuscular Hemoglobin 26.2 pg (27.0-31.0); Mean Corpuscular Volume 84.8 fL (78.0-98.0); Mean Platelet Volume 10.6 fL (7.4-10.4); Platelet Count 142 10x3/uL (130-400); RBC Distribution Width 16.8 % (11.5-14.5); Red Blood Cell (RBC) Count 3.36 mill/uL (4.20-5.40)
[2024-12-18] MEDS: Phenazopyridine HCl 100 MG TAB PO SCH (11:44)
[2024-12-19] MEDS: Phenazopyridine HCl 100 MG TAB PO PRN (05:34)
[2024-12-19] MEDS: SODIUM CHLORIDE 0.9% IVPB SCH (11:30)
[2024-12-19] MEDS: CEFIDEROCOL IVPB SCH (11:30)
[2024-12-20 05:54] LABS: #Basophils 0.06 10x3/uL (0.0-0.2); %Basophils 1.1 % (0.0-1.0); %Eosinophils 22.4 % (0.0-10.0); %Lymphocytes 26.6 % (21.0-51.0); %Monocytes 11.2 % (0.0-10.0); %Neutrophils 38.5 % (42.0-75.0); Hematocrit 28.2 % (36.0-47.0); Hemoglobin 8.9 g/dL (12.0-16.0); Mean Corpuscular HGB CONC 31.6 g/dL (32.0-36.0); Mean Corpuscular Hemoglobin 26.4 pg (27.0-31.0); Mean Corpuscular Volume 83.7 fL (78.0-98.0); Mean Platelet Volume 10.9 fL (7.4-10.4); Platelet Count 150 10x3/uL (130-400); RBC Distribution Width 17.2 % (11.5-14.5); Red Blood Cell (RBC) Count 3.37 mill/uL (4.20-5.40)
[2024-12-20 06:19] LABS: Anion Gap 9 mmol/L (10-20); BUN (Urea Nitrogen) 8 mg/dL (7.0-18.7); Calc. Creatinine Clearance 186 mL/min (70-130); Calcium 8.4 mg/dL (7.8-10.44); Carbon Dioxide 25 mmol/L (22-29); Chloride 102 mmol/L (98-107); Estimated GFR 127; Glucose 80 mg/dL (70-105); Magnesium 1.7 mg/dL (1.6-2.6); Potassium 4.3 mmol/L (3.5-5.1); Sodium 132 mmol/L (136-145)
[2024-12-20] MEDS: HYDROcodone/Acetaminophen 5/325 mg Tablet PO SCH (20:12)
[2024-12-21 06:46] LABS: Vancomycin, Random 13.8 ug/mL (See Comment)
[2024-12-21] MEDS: Vancomycin 1 GM in Premix 1 BAG IVPB SCH (15:34)
[2024-12-21] MEDS: Acetaminophen 325 MG TAB PER TUBE PRN (18:38)
[2024-12-22 09:06] VITALS: BP 101/69; TEMP 97.5
[2024-12-22 11:36] LABS: Vancomycin, Random 35.6 ug/mL (See Comment)
== END 2024-12-22 12:41 | DRG 698 ==
LOC: ERS 23:03 → CCU 12-10 06:16 → T4-B 12-11 17:45
PROVIDERS: ADMIT Internal Medicine; ATTEND Internal Medicine
DX: T83.511A Infection and inflammatory reaction due to indwelling urethral catheter, initial encounter (principal); G82.50 Quadriplegia, unspecified; L89.94 Pressure ulcer of unspecified site, stage 4; J18.9 Pneumonia, unspecified organism; J96.11 Chronic respiratory failure with hypoxia; N18.4 Chronic kidney disease, stage 4 (severe); E87.1 Hypo-osmolality and hyponatremia; Z16.24 Resistance to multiple antibiotics; J98.11 Atelectasis; N18.9 Chronic kidney disease, unspecified; G89.4 Chronic pain syndrome; D63.1 Anemia in chronic kidney disease; Y84.6 Urinary catheterization as the cause of abnormal reaction of the patient, or of later complication, without mention of misadventure at the time of the procedure; E86.9 Volume depletion, unspecified; B95.62 Methicillin resistant Staphylococcus aureus infection as the cause of diseases classified elsewhere; B96.83 Acinetobacter baumannii as the cause of diseases classified elsewhere; Z93.0 Tracheostomy status; Z93.3 Colostomy status; Z88.2 Allergy status to sulfonamides; Z79.899 Other long term (current) drug therapy
CPT/HCPCS: 36415; 71045; 71275; 74177; 74250; 80048; 80053; 80202; 80306; 80307; 81001; 82565; 82805; 83605; 83690; 83735; 84443; 84484; 84703; 85025; 87040; 87071; 87077; 87086; 87149; 87186; 87324; 87428; 87449; 87505; 87798; 93005; 93010; 96361; 96365; 96366; 96367; 96375; 96376; 97139; C9399; J0692; J0744; J1650; J2272; J2405; J2550; J3010; J3370; J7030; J7050; Q9963

== ENCOUNTER 2025-08-03 14:48 | Inpatient (IN) | payer OTHER ==
[2025-08-03] MEDS ORDERED: Cefepime 2 GM VIAL ONE (16:33)
[2025-08-03 16:35] LABS: ALT (SGPT) 83 U/L (Less than 34); AST (SGOT) 61 U/L (11-34); Albumin 3.1 g/dL (3.1-4.5); Alkaline Phosphatase 77 U/L (40-110); Anion Gap 12 mmol/L (10-20); BUN (Urea Nitrogen) 14 mg/dL (7.0-18.7); Bilirubin, Total 0.4 mg/dL (0.3-1.2); Calc. Creatinine Clearance 0 mL/min (70-130); Calcium 8.7 mg/dL (7.8-10.44); Carbon Dioxide 24 mmol/L (22-29); Chloride 106 mmol/L (98-107); Globulin 3.8 g/dL (2.4-3.5); Glucose 91 mg/dL (70-105); Potassium 4.5 mmol/L (3.5-5.1); Sodium 137 mmol/L (136-145)
[2025-08-03 16:45] LABS: CAUTI Indications for Culture Pelvic or flank pain; Glucose, Urine (Dipstick) Normal (Negative); Leukocyte 250 Leu/uL (Negative); Protein, Urine (Dipstick) 10 mg/dL (Neg-Trace); RBC/HPF Greater than 50 HPF (0-3); Specific Gravity, Urine 1.013 (1.002-1.036); WBC/HPF 21-50 HPF (0-3)
[2025-08-03 16:46] LABS: Bacteria/HPF 1+ HPF (None Seen)
[2025-08-03 16:47] LABS: Urine Culture Reflex Yes Yes
[2025-08-03 16:51] LABS: #Basophils 0.07 10x3/uL (0.0-0.2); #Eosinophils 2.28 10x3/uL (0.0-0.7); #Monocytes 1.53 10x3/uL (0.11-0.59); #Neutrophils 4.96 10x3/uL (1.40-6.50); %Basophils 0.6 % (0.0-1.0); %Eosinophils 20.5 % (0.0-10.0); %Lymphocytes 20.2 % (21.0-51.0); %Monocytes 13.8 % (0.0-10.0); %Neutrophils 44.6 % (42.0-75.0); Hematocrit 34.9 % (36.0-47.0); Hemoglobin 11.6 g/dL (12.0-16.0); Mean Corpuscular Hemoglobin 30.8 pg (27.0-31.0); Mean Corpuscular Volume 92.6 fL (78.0-98.0); Platelet Count 135 10x3/uL (130-400); Red Blood Cell (RBC) Count 3.77 mill/uL (4.20-5.40); White Blood Cell (WBC) Count 11.12 10x3/uL (4.8-10.8)
[2025-08-03 17:36] LABS: Platelet Adequacy Comment Platelets Normal; Polychromasia SLIGHT = 2-3 cells HPF (0-2)
[2025-08-03] MEDS ORDERED: LevoFLOXacin 750 mg/D5W 150 ml Premix Bag ONE (18:11)
[2025-08-03] MEDS ORDERED: Ondansetron PF 4 MG/2 ML Vial IVP PRN (19:27)
[2025-08-03] MEDS ORDERED: Loratadine 10 MG/10 ML UDCUP PO PRN (20:31)
[2025-08-03] MEDS ORDERED: Pharmacy to Dose: VANC IVPB PRN (21:02)
[2025-08-03] MEDS: Vancomycin 1.5 GM / NS 500ML VIAL-2-BAG IVPB SCH (22:00)
[2025-08-03] MEDS: HYDROcodone/Acetaminophen 5/325 mg Tablet PO PRN (22:21)
[2025-08-03] MEDS: Magnesium Oxide 400 MG TAB PO SCH (22:22)
[2025-08-03] MEDS: Oxybutynin 5 MG TAB PO SCH (22:22)
[2025-08-03] MEDS: Baclofen 10 MG TAB PO SCH (22:23)
[2025-08-03] MEDS: Gabapentin 300 MG CAP PO SCH (22:23)
[2025-08-03 23:47] VITALS: BMI 26.2
[2025-08-04] MEDS: hydrOXYzine 10 MG/5 ML SYRUP UDCUP PO PRN (00:15)
[2025-08-04 01:16] LABS: Legionella Urinary Ag Negative (Negative); Strep pneumo Urine Ag NEGATIVE (NEGATIVE)
[2025-08-04 04:32] LABS: #Basophils 0.05 10x3/uL (0.0-0.2); #Eosinophils 2.83 10x3/uL (0.0-0.7); #Monocytes 1.30 10x3/uL (0.11-0.59); #Neutrophils 3.57 10x3/uL (1.40-6.50); %Basophils 0.5 % (0.0-1.0); %Eosinophils 28.6 % (0.0-10.0); %Lymphocytes 21.3 % (21.0-51.0); %Monocytes 13.1 % (0.0-10.0); %Neutrophils 36.2 % (42.0-75.0); Hematocrit 33.6 % (36.0-47.0); Hemoglobin 11.1 g/dL (12.0-16.0); Mean Corpuscular Hemoglobin 31.1 pg (27.0-31.0); Mean Corpuscular Volume 94.1 fL (78.0-98.0); Platelet Count 117 10x3/uL (130-400); Red Blood Cell (RBC) Count 3.57 mill/uL (4.20-5.40); White Blood Cell (WBC) Count 9.89 10x3/uL (4.8-10.8)
[2025-08-04 04:49] LABS: Anion Gap 11 mmol/L (10-20); BUN (Urea Nitrogen) 9 mg/dL (7.0-18.7); Calc. Creatinine Clearance 171 mL/min (70-130); Calcium 8.2 mg/dL (7.8-10.44); Carbon Dioxide 18 mmol/L (22-29); Chloride 111 mmol/L (98-107); Glucose 81 mg/dL (70-105); Potassium 4.2 mmol/L (3.5-5.1); Sodium 136 mmol/L (136-145)
[2025-08-04 05:13] LABS: Platelet Adequacy Comment Platelets Decreased; RBC Morphology Within Normal Limits
[2025-08-04] MEDS: Methocarbamol 500 MG TAB PO PRN (06:09)
[2025-08-04] MEDS: Senokot 8.6 MG TAB PO SCH (08:29)
[2025-08-04] MEDS: Enoxaparin 40 MG (0.4 mL) SYRINGE SC SCH (08:30)
[2025-08-04] MEDS: Aspirin 81 mg Enteric Coated Tablet PO SCH (08:30)
[2025-08-04] MEDS: Vancomycin 1.25 GM / NS 250 ML VIAL-2-BAG IVPB SCH (08:43)
[2025-08-04 15:55] VITALS: BMI 26.2
[2025-08-04] MEDS: diphenhydrAMINE 25 MG CAP PO PRN (21:36)
[2025-08-06] MEDS: Acetaminophen 325 MG TAB PO PRN (00:24)
[2025-08-07] MEDS: AVIBACTAM IVPB SCH (01:02)
[2025-08-07] MEDS: SODIUM CHLORIDE 0.9% IVPB SCH (01:02)
[2025-08-07] MEDS: CEFTAZIDIME IVPB SCH (01:02)
[2025-08-07 10:04] LABS: Hematocrit 35.5 % (36.0-47.0); Hemoglobin 11.7 g/dL (12.0-16.0); Mean Corpuscular Hemoglobin 30.7 pg (27.0-31.0); Mean Corpuscular Volume 93.2 fL (78.0-98.0); Platelet Count 166 10x3/uL (130-400); Red Blood Cell (RBC) Count 3.81 mill/uL (4.20-5.40); White Blood Cell (WBC) Count 8.38 10x3/uL (4.8-10.8)
[2025-08-07 10:20] LABS: Anion Gap 13 mmol/L (10-20); BUN (Urea Nitrogen) 7 mg/dL (7.0-18.7); Calc. Creatinine Clearance 185 mL/min (70-130); Calcium 8.5 mg/dL (7.8-10.44); Carbon Dioxide 21 mmol/L (22-29); Glucose 81 mg/dL (70-105); Potassium 4.5 mmol/L (3.5-5.1); Sodium 136 mmol/L (136-145)
[2025-08-07 10:27] LABS: Anisocytosis SLIGHT = 6-15 cells HPF (0-5); Burr Cells SLIGHT = 2-5 cells HPF (0-1); Ovalocytes SLIGHT = 2-5 cells HPF (0-1); Platelet Adequacy Comment Platelets Normal; Polychromasia SLIGHT = 2-3 cells HPF (0-2); Smudge Cells 48.5 %
[2025-08-07 10:28] LABS: Chloride 106 mmol/L (98-107)
[2025-08-08 04:48] LABS: Hematocrit 34.3 % (36.0-47.0); Hemoglobin 10.9 g/dL (12.0-16.0); Mean Corpuscular Hemoglobin 30.5 pg (27.0-31.0); Mean Corpuscular Volume 96.1 fL (78.0-98.0); Platelet Count 166 10x3/uL (130-400); Red Blood Cell (RBC) Count 3.57 mill/uL (4.20-5.40); White Blood Cell (WBC) Count 9.21 10x3/uL (4.8-10.8)
[2025-08-08 05:10] LABS: Anion Gap 12 mmol/L (10-20); BUN (Urea Nitrogen) 21 mg/dL (7.0-18.7); Calc. Creatinine Clearance 174 mL/min (70-130); Calcium 8.8 mg/dL (7.8-10.44); Carbon Dioxide 24 mmol/L (22-29); Chloride 105 mmol/L (98-107); Glucose 104 mg/dL (70-105); Potassium 4.6 mmol/L (3.5-5.1); Sodium 136 mmol/L (136-145)
[2025-08-08 05:17] LABS: Platelet Adequacy Comment Platelets Normal; Polychromasia SLIGHT = 2-3 cells HPF (0-2)
[2025-08-08] MEDS: Aspirin Chewable 81 MG TAB PER TUBE SCH (10:00)
[2025-08-09] MEDS: Aspirin Chewable 81 MG TAB PER TUBE SCH (10:55)
[2025-08-13] MEDS: Diclofenac 1% 50 GM TOPICAL GEL TP SCH (14:33)
[2025-08-13] MEDS: Mag-Al 1200 mg/1200 mg/30 ML UDCUP PER TUBE SCH (17:34)
[2025-08-13 18:27] LABS: Hematocrit 36.6 % (36.0-47.0); Hemoglobin 11.5 g/dL (12.0-16.0); Mean Corpuscular Hemoglobin 30.3 pg (27.0-31.0); Mean Corpuscular Volume 96.6 fL (78.0-98.0); Platelet Count 248 10x3/uL (130-400); Red Blood Cell (RBC) Count 3.79 mill/uL (4.20-5.40); White Blood Cell (WBC) Count 11.08 10x3/uL (4.8-10.8)
[2025-08-13 18:53] LABS: Anisocytosis SLIGHT = 6-15 cells HPF (0-5); Burr Cells SLIGHT = 2-5 cells HPF (0-1); Platelet Adequacy Comment Platelets Normal; Polychromasia SLIGHT = 2-3 cells HPF (0-2); Smudge Cells 30.4 %
[2025-08-13 18:59] LABS: Anion Gap 13 mmol/L (10-20); BUN (Urea Nitrogen) 20 mg/dL (7.0-18.7); Calc. Creatinine Clearance 178 mL/min (70-130); Calcium 9.1 mg/dL (7.8-10.44); Carbon Dioxide 19 mmol/L (22-29); Chloride 105 mmol/L (98-107); Glucose 106 mg/dL (70-105); Potassium 4.4 mmol/L (3.5-5.1); Sodium 133 mmol/L (136-145)
[2025-08-13] MEDS ORDERED: AVIBACTAM IVPB SCH (20:00)
[2025-08-13] MEDS ORDERED: SODIUM CHLORIDE 0.9% IVPB SCH (20:00)
[2025-08-13] MEDS ORDERED: CEFTAZIDIME IVPB SCH (20:00)
[2025-08-14 05:19] LABS: Anion Gap 13 mmol/L (10-20); BUN (Urea Nitrogen) 19 mg/dL (7.0-18.7); Calc. Creatinine Clearance 168 mL/min (70-130); Calcium 8.7 mg/dL (7.8-10.44); Carbon Dioxide 22 mmol/L (22-29); Chloride 103 mmol/L (98-107); Glucose 88 mg/dL (70-105); Potassium 4.2 mmol/L (3.5-5.1); Sodium 134 mmol/L (136-145)
[2025-08-14 06:19] LABS: Hematocrit 35.0 % (36.0-47.0); Hemoglobin 11.2 g/dL (12.0-16.0); Mean Corpuscular Hemoglobin 30.4 pg (27.0-31.0); Mean Corpuscular Volume 94.9 fL (78.0-98.0); Platelet Count 215 10x3/uL (130-400); Red Blood Cell (RBC) Count 3.69 mill/uL (4.20-5.40); White Blood Cell (WBC) Count 10.16 10x3/uL (4.8-10.8)
[2025-08-14 07:12] LABS: Bacteria/HPF None Seen HPF (None Seen); CAUTI Indications for Culture Dysuria,urgency,freq; Glucose, Urine (Dipstick) Normal (Negative); Leukocyte 500 Leu/uL (Negative); Protein, Urine (Dipstick) 10 mg/dL (Neg-Trace); RBC/HPF None Seen HPF (0-3); Specific Gravity, Urine 1.027 (1.002-1.036); WBC/HPF Greater than 50 HPF (0-3); Yeast-Budding 2+ HPF (None Seen)
[2025-08-14 07:15] LABS: Urine Culture Reflex Yes Yes
[2025-08-14 07:32] LABS: Platelet Adequacy Comment Platelets Normal; Polychromasia SLIGHT = 2-3 cells HPF (0-2); Smudge Cells 27.2 %
[2025-08-14] MEDS ORDERED: Iopamidol-370 76% 500 ML MDV (1 ML CHARGE) ONE (15:30)
[2025-08-14 17:12] LABS: Pregnancy Test - Urine (BHCG) Negative (Negative); Pregu Control Background? CLEAR/WHITE (CLR/WHITE); Pregu Control Bar Appear? YES (CONTROL BAR)
[2025-08-14] MEDS ORDERED: Hyoscyamine SL 0.125 MG TAB PO PRN (17:51)
[2025-08-15 05:43] LABS: Hematocrit 36.7 % (36.0-47.0); Hemoglobin 11.7 g/dL (12.0-16.0); Mean Corpuscular Hemoglobin 30.0 pg (27.0-31.0); Mean Corpuscular Volume 94.1 fL (78.0-98.0); Platelet Count 237 10x3/uL (130-400); Red Blood Cell (RBC) Count 3.90 mill/uL (4.20-5.40); White Blood Cell (WBC) Count 9.79 10x3/uL (4.8-10.8)
[2025-08-15 06:00] LABS: Anion Gap 10 mmol/L (10-20); BUN (Urea Nitrogen) 21 mg/dL (7.0-18.7); Calc. Creatinine Clearance 171 mL/min (70-130); Calcium 9.0 mg/dL (7.8-10.44); Carbon Dioxide 26 mmol/L (22-29); Chloride 104 mmol/L (98-107); Glucose 91 mg/dL (70-105); Potassium 4.3 mmol/L (3.5-5.1); Sodium 136 mmol/L (136-145)
[2025-08-15 06:17] LABS: Platelet Adequacy Comment Platelets Normal; Polychromasia SLIGHT = 2-3 cells HPF (0-2); Smudge Cells 18.0 %
[2025-08-15] MEDS: Ketorolac Tromethamine 30 MG (1 mL) VIAL IVP SCH (11:44)
[2025-08-16 05:07] LABS: Hematocrit 38.3 % (36.0-47.0); Hemoglobin 12.2 g/dL (12.0-16.0); Mean Corpuscular Hemoglobin 30.3 pg (27.0-31.0); Mean Corpuscular Volume 95.3 fL (78.0-98.0); Platelet Count 255 10x3/uL (130-400); Red Blood Cell (RBC) Count 4.02 mill/uL (4.20-5.40); White Blood Cell (WBC) Count 11.04 10x3/uL (4.8-10.8)
[2025-08-16 05:26] LABS: Anion Gap 15 mmol/L (10-20); BUN (Urea Nitrogen) 24 mg/dL (7.0-18.7); Calc. Creatinine Clearance 165 mL/min (70-130); Calcium 9.5 mg/dL (7.8-10.44); Carbon Dioxide 24 mmol/L (22-29); Chloride 103 mmol/L (98-107); Glucose 68 mg/dL (70-105); Potassium 4.5 mmol/L (3.5-5.1); Sodium 137 mmol/L (136-145)
[2025-08-16 06:19] LABS: Platelet Adequacy Comment Platelets Normal; Polychromasia SLIGHT = 2-3 cells HPF (0-2); Smudge Cells 20.2 %
[2025-08-17 06:02] LABS: Anion Gap 14 mmol/L (10-20); BUN (Urea Nitrogen) 28 mg/dL (7.0-18.7); Calc. Creatinine Clearance 156 mL/min (70-130); Calcium 9.2 mg/dL (7.8-10.44); Carbon Dioxide 27 mmol/L (22-29); Chloride 103 mmol/L (98-107); Glucose 82 mg/dL (70-105); Potassium 4.5 mmol/L (3.5-5.1); Sodium 139 mmol/L (136-145)
[2025-08-17 06:11] LABS: Hematocrit 39.3 % (36.0-47.0); Hemoglobin 12.5 g/dL (12.0-16.0); Mean Corpuscular Hemoglobin 30.3 pg (27.0-31.0); Mean Corpuscular Volume 95.4 fL (78.0-98.0); Platelet Count 243 10x3/uL (130-400); Red Blood Cell (RBC) Count 4.12 mill/uL (4.20-5.40); White Blood Cell (WBC) Count 10.17 10x3/uL (4.8-10.8)
[2025-08-17 07:17] LABS: Nucleated RBC (Manual Ct) 1 % (0); Platelet Adequacy Comment Platelets Normal; RBC Morphology Within Normal Limits; Smudge Cells 14.7 %
[2025-08-17] MEDS ORDERED: Fluconazole 100 MG TAB PO SCH (09:00)
[2025-08-17] MEDS ORDERED: Electrolyte Replacement Protocol 1 EACH FS ONE (14:58)
[2025-08-17] MEDS: HYDROcodone/Acetaminophen 5/325 mg Tablet PER TUBE PRN (23:44)
[2025-08-18 07:40] LABS: Hematocrit 39.3 % (36.0-47.0); Hemoglobin 12.5 g/dL (12.0-16.0); Mean Corpuscular Hemoglobin 30.6 pg (27.0-31.0); Mean Corpuscular Volume 96.1 fL (78.0-98.0); Platelet Count 246 10x3/uL (130-400); Red Blood Cell (RBC) Count 4.09 mill/uL (4.20-5.40); White Blood Cell (WBC) Count 10.73 10x3/uL (4.8-10.8)
[2025-08-18 07:44] LABS: Anion Gap 14 mmol/L (10-20); BUN (Urea Nitrogen) 29 mg/dL (7.0-18.7); Calc. Creatinine Clearance 151 mL/min (70-130); Calcium 9.5 mg/dL (7.8-10.44); Carbon Dioxide 28 mmol/L (22-29); Chloride 105 mmol/L (98-107); Glucose 128 mg/dL (70-105); Potassium 4.5 mmol/L (3.5-5.1); Sodium 142 mmol/L (136-145)
[2025-08-18 09:55] LABS: Anisocytosis SLIGHT = 6-15 cells HPF (0-5); Macrocytosis SLIGHT = 6-15 cells HPF (0-5); Platelet Adequacy Comment Platelets Normal; Polychromasia SLIGHT = 2-3 cells HPF (0-2); Smudge Cells 8.0 %
[2025-08-18] MEDS: WATER IVPB SCH ×2 (10:57→15:37)
[2025-08-18] MEDS: DEXTROSE 5% IVPB SCH ×2 (10:57→15:37)
[2025-08-18] MEDS: AMPHOTERICIN B IVPB SCH ×2 (10:57→15:37)
[2025-08-18] MEDS: Admixture Fee 1 EACH in Dextrose 5% in Water 10 ML FS SCH ×2 (10:58→15:35)
[2025-08-18] MEDS: diphenhydrAMINE 25 MG CAP PO SCH (14:04)
[2025-08-18] MEDS: Acetaminophen 325 MG TAB PO SCH (14:04)
[2025-08-19 05:57] LABS: #Basophils 0.14 10x3/uL (0.0-0.2); #Eosinophils 2.51 10x3/uL (0.0-0.7); #Monocytes 1.53 10x3/uL (0.11-0.59); #Neutrophils 4.28 10x3/uL (1.40-6.50); %Basophils 1.3 % (0.0-1.0); %Eosinophils 22.9 % (0.0-10.0); %Lymphocytes 22.3 % (21.0-51.0); %Monocytes 14.0 % (0.0-10.0); %Neutrophils 39.0 % (42.0-75.0); Hematocrit 38.3 % (36.0-47.0); Hemoglobin 11.9 g/dL (12.0-16.0); Mean Corpuscular Hemoglobin 29.9 pg (27.0-31.0); Mean Corpuscular Volume 96.2 fL (78.0-98.0); Platelet Count 259 10x3/uL (130-400); Red Blood Cell (RBC) Count 3.98 mill/uL (4.20-5.40); White Blood Cell (WBC) Count 10.95 10x3/uL (4.8-10.8)
[2025-08-19 06:07] LABS: Anion Gap 13 mmol/L (10-20); BUN (Urea Nitrogen) 31 mg/dL (7.0-18.7); Calc. Creatinine Clearance 141 mL/min (70-130); Calcium 9.3 mg/dL (7.8-10.44); Carbon Dioxide 24 mmol/L (22-29); Chloride 109 mmol/L (98-107); Glucose 60 mg/dL (70-105); Potassium 4.1 mmol/L (3.5-5.1); Sodium 142 mmol/L (136-145)
[2025-08-19] MEDS ORDERED: PROPYLENE GLYCOL EA EYE PRN (09:52)
[2025-08-19] MEDS ORDERED: Artificial Tear Ophth Sol 15 ML BOT EA EYE PRN (10:12)
[2025-08-19] MEDS: Admixture Fee 1 EACH in Dextrose 5% in Water 10 ML FS SCH (14:43)
[2025-08-19] MEDS ORDERED: Non-Formulary Item 1 EACH (Gabapentin [Gabapentin] 600 MG Tablet) PER TUBE SCH (15:00)
[2025-08-19] MEDS ORDERED: Non-Formulary Item 1 EACH (Midodrine [Midodrine] 10 MG Tab) PER TUBE SCH (15:00)
[2025-08-19] MEDS: Gabapentin 300 MG CAP PER TUBE SCH (15:08)
[2025-08-19] MEDS: Oxybutynin 5 MG TAB PER TUBE SCH (20:14)
[2025-08-19] MEDS ORDERED: OXYBUTYNIN CHLORIDE 5 MG/5 ML PER TUBE SCH (21:00)
[2025-08-20 07:58] VITALS: TEMP 97.9
[2025-08-20 08:24] LABS: Hematocrit 36.9 % (36.0-47.0); Hemoglobin 11.5 g/dL (12.0-16.0); Mean Corpuscular Hemoglobin 30.5 pg (27.0-31.0); Mean Corpuscular Volume 97.9 fL (78.0-98.0); Platelet Count 232 10x3/uL (130-400); Red Blood Cell (RBC) Count 3.77 mill/uL (4.20-5.40); White Blood Cell (WBC) Count 12.51 10x3/uL (4.8-10.8)
[2025-08-20 08:44] LABS: Anion Gap 15 mmol/L (10-20); BUN (Urea Nitrogen) 41 mg/dL (7.0-18.7); Calc. Creatinine Clearance 117 mL/min (70-130); Calcium 9.4 mg/dL (7.8-10.44); Carbon Dioxide 26 mmol/L (22-29); Chloride 113 mmol/L (98-107); Glucose 69 mg/dL (70-105); Potassium 4.5 mmol/L (3.5-5.1); Sodium 149 mmol/L (136-145)
[2025-08-20 09:08] LABS: Platelet Adequacy Comment Platelets Normal; Polychromasia SLIGHT = 2-3 cells HPF (0-2); Smudge Cells 9.7 %
[2025-08-20] MEDS: Senokot 8.6 MG TAB PER TUBE SCH (09:44)
[2025-08-20 12:35] VITALS: BP 101/62
== END 2025-08-20 17:07 | DRG 698 ==
LOC: ERS 14:48 → 2NO 20:02 → T4-A 08-17 19:32
PROVIDERS: ADMIT Internal Medicine; ATTEND Hospitalist
PROC: 3E03329 Introduction of Other Anti-infective into Peripheral Vein, Percutaneous Approach (ICD-10-PCS; principal; 2025-08-03)
PROC: 0T9B70Z Drainage of Bladder with Drainage Device, Via Natural or Artificial Opening (ICD-10-PCS; 2025-08-03)
PROC: 0DH67UZ Insertion of Feeding Device into Stomach, Via Natural or Artificial Opening (ICD-10-PCS; 2025-08-03)
PROC: 3E0G76Z Introduction of Nutritional Substance into Upper GI, Via Natural or Artificial Opening (ICD-10-PCS; 2025-08-03)
DX: T83.511A Infection and inflammatory reaction due to indwelling urethral catheter, initial encounter (principal); A41.59 Other Gram-negative sepsis; G82.50 Quadriplegia, unspecified; J96.11 Chronic respiratory failure with hypoxia; G82.20 Paraplegia, unspecified; Z16.24 Resistance to multiple antibiotics; N39.0 Urinary tract infection, site not specified; M85.89 Other specified disorders of bone density and structure, multiple sites; D64.9 Anemia, unspecified; R13.10 Dysphagia, unspecified; K21.9 Gastro-esophageal reflux disease without esophagitis; L89.159 Pressure ulcer of sacral region, unspecified stage; I95.9 Hypotension, unspecified; R21 Rash and other nonspecific skin eruption; B18.2 Chronic viral hepatitis C; N31.9 Neuromuscular dysfunction of bladder, unspecified; B96.4 Proteus (mirabilis) (morganii) as the cause of diseases classified elsewhere; B96.1 Klebsiella pneumoniae [K. pneumoniae] as the cause of diseases classified elsewhere; Z88.0 Allergy status to penicillin; Z87.442 Personal history of urinary calculi; Z98.890 Other specified postprocedural states; Z93.1 Gastrostomy status; Z79.899 Other long term (current) drug therapy; Z88.2 Allergy status to sulfonamides
CPT/HCPCS: 36415; 36416; 71045; 74177; 80048; 80053; 81001; 81025; 83605; 83880; 84145; 84484; 85025; 87040; 87077; 87086; 87186; 87400; 87426; 87449; 87899; 93005; 93010; 94640; 96374; 96375; 97139; J0285; J0692; J0714; J1650; J1885; J1956; J3373; J7030; J7050; J7070; J7626; Q9967

== ENCOUNTER 2025-10-02 18:34 | Emergency (ER) | payer OTHER ==
[2025-10-02] MEDS ORDERED: Ketorolac Tromethamine 30 MG (1 mL) VIAL ONE (22:20)
[2025-10-02 22:31] LABS: Bacteria/HPF 1+ HPF (None Seen); CAUTI Indications for Culture Dysuria,urgency,freq; Glucose, Urine (Dipstick) Normal (Negative); Leukocyte 500 Leu/uL (Negative); Protein, Urine (Dipstick) 100 mg/dL (Neg-Trace); RBC/HPF Greater than 50 HPF (0-3); Specific Gravity, Urine 1.027 (1.002-1.036); WBC/HPF Greater than 50 HPF (0-3)
[2025-10-02 22:32] LABS: Urine Culture Reflex Yes Yes
[2025-10-02 22:33] LABS: Hematocrit 36.6 % (36.0-47.0); Hemoglobin 11.6 g/dL (12.0-16.0); Mean Corpuscular Hemoglobin 30.7 pg (27.0-31.0); Mean Corpuscular Volume 96.8 fL (78.0-98.0); Platelet Count 181 10x3/uL (130-400); Red Blood Cell (RBC) Count 3.78 mill/uL (4.20-5.40); White Blood Cell (WBC) Count 9.98 10x3/uL (4.8-10.8)
[2025-10-02 22:47] LABS: ALT (SGPT) 162 U/L (Less than 34); AST (SGOT) 121 U/L (11-34); Albumin 3.6 g/dL (3.1-4.5); Alkaline Phosphatase 79 U/L (40-110); Anion Gap 15 mmol/L (10-20); BUN (Urea Nitrogen) 34 mg/dL (7.0-18.7); Bilirubin, Total 0.3 mg/dL (0.3-1.2); Calc. Creatinine Clearance 0 mL/min (70-130); Calcium 9.1 mg/dL (7.8-10.44); Carbon Dioxide 26 mmol/L (22-29); Chloride 107 mmol/L (98-107); Globulin 4.0 g/dL (2.4-3.5); Glucose 80 mg/dL (70-105); Potassium 4.3 mmol/L (3.5-5.1); Sodium 144 mmol/L (136-145)
[2025-10-02 22:55] LABS: Anisocytosis SLIGHT = 6-15 cells HPF (0-5); Platelet Adequacy Comment Platelets Normal; Polychromasia SLIGHT = 2-3 cells HPF (0-2)
== END 2025-10-03 01:28 | disposition short-term general hospital (02) ==
LOC: ERS 18:34
DX: T83.518A Infection and inflammatory reaction due to other urinary catheter, initial encounter (principal); I10 Essential (primary) hypertension
CPT/HCPCS: 36415; 51102; 51702; 80053; 81001; 83605; 85025; 87040; 87077; 87086; 87149; 96374; 96375; J1885; J3010